=== PATIENT | female | born 1940 | race Caucasian/White ===

== ENCOUNTER → 2017-05-01 | Outpatient (CLI) | payer MEDICARE ==
[2017-05-01 13:46] LABS: Basophils # (A) 0.1 k/uL (0-0.2); Basophils % (A) 1 %; CH 30.1; CHCM 33.1; Eosinophils # (A) 0.2 k/uL (0-0.7); Eosinophils % (A) 3 %; HCT 42.6 % (34.0-46.0); HDW 2.43; HGB 13.7 gm/dL (11.4-16.0); Luc # (Auto) 0.15; Luc % (Auto) 2; Lymphocytes # (A) 1.5 k/uL (1.0-4.8); Lymphocytes % (A) 21 %; MCH 29.4 pg (25.0-35.0); MCHC 32.2 g/dL (31.0-37.0); MCV 91.5 fL (80.0-100.0); Mean Platelet Volume 6.7; Monocytes # (A) 0.3 k/uL (0-1.0); Monocytes % (A) 4 %; Neutrophils # (A) 4.8 k/uL (1.3-7.7); Neutrophils % (A) 69 %; RBC 4.66 m/uL (3.80-5.40); WBC 6.9 k/uL (3.8-10.6); WBC (Perox) 7.24
== END | disposition home or self-care (01) ==
LOC: LABPAT 12:51
PROVIDERS: ATTEND Orthopaedic Surgery
DX: Z01.812 Encounter for preprocedural laboratory examination (principal)
CPT/HCPCS: 85025

== ENCOUNTER → 2017-05-01 | Outpatient (CLI) | payer MEDICARE ==
[2017-05-01 14:23] LABS: ALT 27 U/L (9-52); AST 30 U/L (14-36); Alkaline Phosphatase 123 U/L (38-126); Anion Gap 10 mmol/L; Blood Urea Nitrogen 27 mg/dL (7-17); Calcium 9.5 mg/dL (8.4-10.2); Carbon Dioxide 29 mmol/L (22-30); Chloride 102 mmol/L (98-107); Glucose 81 mg/dL (74-99); Non-African American GFR(MDRD) >60 (>60 ml/min/1.73 sqM); Potassium 3.8 mmol/L (3.5-5.1); Sodium 141 mmol/L (137-145); Total Bilirubin 0.7 mg/dL (0.2-1.3); Total Protein 6.9 g/dL (6.3-8.2)
== END | disposition home or self-care (01) ==
LOC: LABWHC1 12:53
PROVIDERS: ATTEND Internal Medicine Endocrinology, Diabetes & Metabolism
DX: E83.52 Hypercalcemia (principal); R94.6 Abnormal results of thyroid function studies
CPT/HCPCS: 36415; 80053; 83970; 84439; 84443; 84480

== ENCOUNTER 2017-05-25 09:04 | Day surgery (SDC) | payer MEDICARE ==
[2017-05-18 13:59] VITALS: BMI 27.4
--- NOTE | 2017-05-24 09:30 | HP ---
CHIEF COMPLAINT: Left hand pain and numbness. HISTORY OF PRESENT ILLNESS: The patient is a 76-year-old right-hand dominant retired female who presents with progressive left hand pain and numbness that has worsened over the past 4 years. She notes tingling and weakness. She has been wearing a brace at night. She has tried a previous injection along with medications with only partial temporary relief. PAST MEDICAL HISTORY: Significant for arthritis, hyperlipidemia, neuropathy and reflux. PAST SURGICAL HISTORY: Negative. CURRENT MEDICATIONS: 1. Aspirin. 2. Lipitor. 3. Lodine. 4. Neurontin. 5. [place]. 6. Prilosec. She denies drug allergies. FAMILY HISTORY: Noncontributory. SOCIAL HISTORY: Negative for current tobacco or alcohol use. Sixteen-point review of systems, otherwise reviewed and is noncontributory. On examination, the patient is approximately 5 feet 4 inch, 170 pounds of mesomorphic habitus. HEENT exam is nonfocal. Neck is supple. On examination of her left wrist, she has a positive Tinel's over the carpal canal. She has moderate thenar wasting. APB strength is 4+/5. Light touch is diminished in the left thumb, index, middle and ring finger. Capillary refills less than 2 seconds. EMG report from February of 2014 shows a left median motor latency at the carpal canal 4.42 and sensory latency 5.12. IMPRESSION: Left carpal tunnel syndrome. RECOMMENDATIONS: I talked to the patient at length regarding her treatment options. At this point, she opts to proceed with surgery. We will plan to proceed with left carpal tunnel release. We will perform that as an outpatient procedure utilizing local anesthetic and IV sedation. Risks and benefits were discussed at length in layman's terms. ALEXIS
[~2017-05-25 09:04] MED LIST: DEXAMETHASONE SOD PHOSPHATE 10 MG/ML 1 ML VIAL IV ONE; HYDROmorphone 1 MG/ML 1 ML SYRINGE IVP PRN; LACTATED RINGERS 1,000 ML IV SCH; LIDOCAINE 1% 20 ML VIAL (10MG/ML) FOR IV START INTRADERMA PRN; MIDAZOLAM 2 MG/2 ML VIAL IV PRN; ONDANSETRON 4 MG/2 ML VIAL IVP ONE; SCOPOLAMINE 1.5MG/72HR PATCH TRANSDERM ONE; ceFAZolin 1,000 MG in DEXTROSE/WATER 1 50ML.BAG IV ONE
[2017-05-25 09:27] VITALS: TEMP 98
[2017-05-25] MEDS ORDERED: LIDOCAINE 1% 20 ML VIAL (10MG/ML) FOR IV START INTRADERMA ONE (09:50)
[2017-05-25] MEDS ORDERED: LIDOCAINE 1% INJ 10MG/ML (20 ML MDV) ONE (10:04)
[2017-05-25] MEDS ORDERED: MIDAZOLAM 2 MG/2 ML VIAL ONE (10:04)
[2017-05-25] MEDS ORDERED: PROPOFOL 10 MG/ML 20 ML VIAL IV ONE (10:04)
[2017-05-25] MEDS ORDERED: fentaNYL (PF) 50 MCG/ML 2 ML AMP ONE (10:04)
[2017-05-25] MEDS ORDERED: BUPIVACAINE (PF) 0.25% 30 ML VIAL SQ ONE (10:18)
--- NOTE | 2017-05-25 10:34 | P.OP ---
Date of Procedure: 05/25/17 Preoperative Diagnosis: Left carpal tunnel syndrome Postoperative Diagnosis: Same Procedure(s) Performed: Left carpal tunnel release Implants: Anesthesia: MAC, local Surgeon: Graham Hubbard Estimated Blood Loss (ml): 1 Pathology: none sent Condition: stable Disposition: PACU Indications for Procedure: The patient is a 76-year-old female presents with progressive left hand pain and numbness secondary to carpal tunnel syndrome despite conservative measures. A discussion of the risks and benefits of operative intervention versus continued conservative measures was made with the patient. She opted to proceed with surgery. Operative risks to include infection, neurovascular injury, development of blood clots, possible incomplete resolution of symptoms possible recurrence of symptoms and need for subsequent procedures was discussed. Informed consent was obtained. Operative Findings: As below Description of Procedure: The patient was brought to the operating room, and after induction of IV sedation the left upper extremity was prepped and draped in normal fashion. The proposed incision site was outlined with a skin marker in line with the radial aspect the fourth ray extending from the volar wrist crease distally 2-1/ 2 cm. 10 mL of quarter percent plain Marcaine was injected in the proposed incision site. The tourniquet was inflated to 250 mmHg. The skin was then incised sharply. Cutaneous tissues were divided sharply. The superficial palmar fascia was identified and split in line with the skin incision. The transverse carpal ligament was identified and transected under direct visualization distally to level the palmar fat pad. Proximally was taken level of the volar wrist crease. A plane above and below the transverse carpal ligament was then bluntly dissected with tenotomies. The confluence of the distal informed fashion the transverse carpal ligament was then transected under direct visualization with the tenotomy tines pointed in the ulnar direction. I felt there was adequate proximal release. Neural lysis was not performed. The wound was irrigated normal saline. The skin was reapproximated with simple 4-0 nylon sutures. A sterile dressing was applied. The tourniquet was deflated with less than 15 minutes total tourniquet time. The patient was awoken from sedation and transferred to the recovery room in good condition. Blood loss was estimated at 1 mL. No complications were incurred. Sponge and needle counts were correct at the end the case.
[2017-05-25 10:51] VITALS: RESP 16
[2017-05-25 11:09] VITALS: BP 130/78; PULSE 67
== END 2017-05-25 11:34 | disposition home or self-care (01) ==
LOC: OR 09:04
PROVIDERS: ATTEND Orthopaedic Surgery
DX: G56.02 Carpal tunnel syndrome, left upper limb (principal); M19.90 Unspecified osteoarthritis, unspecified site; E78.5 Hyperlipidemia, unspecified; G62.9 Polyneuropathy, unspecified; K21.9 Gastro-esophageal reflux disease without esophagitis; Z79.82 Long term (current) use of aspirin; Z79.1 Long term (current) use of non-steroidal anti-inflammatories (NSAID); Z79.891 Long term (current) use of opiate analgesic; Z79.899 Other long term (current) drug therapy
CPT/HCPCS: 64721; J2250; J1100; J2405; J2001; J3010; J0690; J2704

== ENCOUNTER → 2017-06-01 | Outpatient (CLI) | payer MEDICARE | LOC: LABWHC1 14:57 | PROVIDERS: ATTEND Internal Medicine Endocrinology, Diabetes & Metabolism | DX: R94.6 Abnormal results of thyroid function studies (principal) | CPT/HCPCS: 36415; 84439; 84443; 84481 ==

== ENCOUNTER → 2017-06-25 | Outpatient (CLI) | payer MEDICARE ==
--- NOTE | 2017-06-26 11:41 | NM ---
EXAMINATION TYPE: NM thyroid image w uptake DATE OF EXAM: 06/26/2017 COMPARISON: NONE HISTORY: TECHNIQUE: After the intravenous administration of 10.5 mCi Tc 99m Sodium Pertechnetate, thyroid imag ing is performed 10 minutes post injection. Thyroid iodine uptake is calculated after the oral admini stration of 20 uCi I-131 capsule. FINDINGS: There is normal distribution of activity throughout the gland. The 4 hour iodine uptake is calculated at 5.4% (normal range 8-14%). The 24-hour iodine uptake is calculated at 14.6% (normal ra nge 15-35%). IMPRESSION: 1. Findings are suggestive of borderline hypothyroidism.
== END ==
LOC: RADNMMAIN 10:37
PROVIDERS: ATTEND Internal Medicine Endocrinology, Diabetes & Metabolism
DX: E05.90 Thyrotoxicosis, unspecified without thyrotoxic crisis or storm (principal)
CPT/HCPCS: 78014; A9528; A9512

== ENCOUNTER → 2017-07-13 | Outpatient (CLI) | payer MEDICARE | END | disposition home or self-care (01) | LOC: LABWHC1 08:04 | PROVIDERS: ATTEND Internal Medicine Endocrinology, Diabetes & Metabolism | DX: E05.90 Thyrotoxicosis, unspecified without thyrotoxic crisis or storm (principal); R53.83 Other fatigue | CPT/HCPCS: 36415; 82024; 82533; 82607; 84146 ==

== ENCOUNTER → 2017-08-06 | Outpatient (CLI) | payer MEDICARE ==
--- NOTE | 2017-08-06 16:16 | BD ---
EXAMINATION TYPE: MG DEXA axial skeleton. DATE OF EXAM: 08/06/2017 COMPARISON: 2014 CLINICAL HISTORY: 76-year-old female osteoporosis Height: 5'3 Weight: 159 FRAX RISK QUESTIONS: Alcohol (3 or more units per day): no Family History (Parent hip fracture): no Glucocorticoids (More than 3mos): no (Ex: prednisone, prednisolone, methylprednisolone, dexamethasone, and hydrocortisone). History of Fracture in Adulthood: yes Secondary Osteoporosis: 1. Type 1 Diabetes: no 2. Hyperthyroidism: no 3. Menopause before 45: yes 4. Malnutrition: no 5. Chronic liver disease: no Rheumatoid Arthritis: no Current Tobacco Use: no RISK FACTORS HISTORY OF: Surgery to Spine/ When: 2014 Family History of Osteoporosis: Postmenopausal woman: Lost more than 2 inches in height since high school: MEDICATIONS: Additional Medications: blood pressure, cholesterol, pain Additional History: EXAM MEASUREMENTS: Bone mineral densitometry was performed using the fotobabble System. Bone mineral density about the R hip (g/cm2): 0.895 Bone mineral density about the L hip (g/cm2): 0.889 T Score values are as follows: -----R Neck: -1.0 -----L Neck: -1.1 -----R Total: -1.1 -----L Total: -1.1 Bone mineral density has: Decreased -1.1% since study of: 07/27/2015 IMPRESSION: Osteopenia (T Score between -2.5 and -1 as noted by T score values: Zay Hips). There is slightly increased risk of fracture and the patient may be considered for treatment. Re-Screen 2-5 years. NOTE: T-SCORE=SD OF THE YOUNG ADULT MEAN.
== END | disposition home or self-care (01) ==
LOC: RADBDWWP 10:12
PROVIDERS: ATTEND Internal Medicine Rheumatology
DX: M85.80 Other specified disorders of bone density and structure, unspecified site (principal)
CPT/HCPCS: 77080

== ENCOUNTER → 2017-08-06 | Outpatient (CLI) | payer MEDICARE ==
--- NOTE | 2017-08-07 11:52 | MM ---
Reason for exam: screening (asymptomatic). Last mammogram was performed 1 year ago. History: Patient is postmenopausal. Family history of breast cancer in mother at age 65 and breast cancer in maternal cousin at age 39. Reductions of both breasts, November 29, 2010. Benign excisional biopsy of the left breast. Took estrogen for 27 years beginning at age 38. Physical Findings: A clinical breast exam by your physician is recommended on an annual basis and results should be correlated with mammographic findings. MG Screening Mammo w CAD Bilateral CC and MLO view(s) were taken. Prior study comparison: August 03, 2016, bilateral MG screening mammo w CAD. July 27, 2015, bilateral MG screening mammo w CAD. Finding: There is an increased 3 x 7 mm indistinct irregular mass located 5 cm from the nipple in the 5 o'clock lower inner quadrant, middle position of the right breast. New finding since August 03, 2016. ASSESSMENT: Incomplete: need additional imaging evaluation, BI-RAD 0 RECOMMENDATION: Special view mammogram of the right breast. If lesion persists on supplemental views, image directed ultrasound is recommended. [facility] will attempt to contact patient to return for supplemental views and ultrasound if indicated.
== END | disposition home or self-care (01) ==
LOC: RADMAMWWP 10:09
PROVIDERS: ATTEND Family Medicine
DX: Z12.31 Encounter for screening mammogram for malignant neoplasm of breast (principal); M81.0 Age-related osteoporosis without current pathological fracture; M85.88 Other specified disorders of bone density and structure, other site
CPT/HCPCS: 77080; G0202

== ENCOUNTER → 2017-09-10 | Outpatient (CLI) | payer MEDICARE ==
[2017-09-10 13:27] LABS: ALT 33 U/L (9-52); AST 28 U/L (14-36); Alkaline Phosphatase 132 U/L (38-126); Anion Gap 7 mmol/L; Blood Urea Nitrogen 22 mg/dL (7-17); Calcium 9.5 mg/dL (8.4-10.2); Carbon Dioxide 31 mmol/L (22-30); Chloride 102 mmol/L (98-107); Cholesterol 164 mg/dL (<200); Glucose 90 mg/dL (74-99); HDL Cholesterol 73 mg/dL (40-60); Non-African American GFR(MDRD) >60 (>60 ml/min/1.73 sqM); Potassium 3.9 mmol/L (3.5-5.1); Sodium 140 mmol/L (137-145); Total Bilirubin 0.6 mg/dL (0.2-1.3); Total Protein 6.8 g/dL (6.3-8.2)
== END | disposition home or self-care (01) ==
LOC: LABWHC1 12:24
PROVIDERS: ATTEND Internal Medicine Interventional Cardiology
DX: E83.52 Hypercalcemia (principal); E05.90 Thyrotoxicosis, unspecified without thyrotoxic crisis or storm; E78.2 Mixed hyperlipidemia
CPT/HCPCS: 36415; 80053; 80061; 83970; 84439; 84443

== ENCOUNTER → 2018-03-14 | Outpatient (CLI) | payer MEDICARE ==
[2018-03-14 09:05] LABS: Albumin 4.2 g/dL (3.5-5.0); Potassium 3.7 mmol/L (3.5-5.1); Total Bilirubin 0.5 mg/dL (0.2-1.3); Total Protein 6.6 g/dL (6.3-8.2)
[2018-03-14 09:17] LABS: T4, Free (Free Thyroxine) 0.7 ng/dL (0.78-2.19)
== END | disposition home or self-care (01) ==
LOC: LABWHC1 08:19
PROVIDERS: ATTEND Internal Medicine Endocrinology, Diabetes & Metabolism
DX: E05.90 Thyrotoxicosis, unspecified without thyrotoxic crisis or storm (principal); R94.6 Abnormal results of thyroid function studies; E78.2 Mixed hyperlipidemia
CPT/HCPCS: 36415; 80053; 80061; 84439; 84443; 84480

== ENCOUNTER 2018-05-26 21:22 | Observation (INO) | payer MEDICARE ==
[2018-05-26] MEDS ORDERED: SODIUM CHLORIDE 0.9% 1,000 ML IV STA (21:35)
[2018-05-26 21:48] LABS: Glucose,Whole Blood 95 mg/dL (75-99)
[2018-05-26 22:28] LABS: Basophils % (A) 1 %; Eosinophils # (A) 0.2 k/uL (0-0.7); Eosinophils % (A) 3 %; HCT 40.6 % (34.0-46.0); HGB 13.4 gm/dL (11.4-16.0); Lymphocytes # (A) 1.5 k/uL (1.0-4.8); Lymphocytes % (A) 27 %; MCH 27.5 pg (25.0-35.0); MCHC 33.1 g/dL (31.0-37.0); MCV 83.2 fL (80.0-100.0); Mean Platelet Volume 6.6; Monocytes # (A) 0.4 k/uL (0-1.0); Monocytes % (A) 6 %; Neutrophils # (A) 3.4 k/uL (1.3-7.7); Neutrophils % (A) 61 %; Platelet Count 228 k/uL (150-450); RBC 4.88 m/uL (3.80-5.40); RDW 13.7 % (11.5-15.5); WBC 5.6 k/uL (3.8-10.6)
--- NOTE | 2018-05-26 22:34 | ED ---
General Adult HPI - General Chief complaint: Neuro Symptoms/Deficit Stated complaint: Poss Stroke/difficulty speaking Time Seen by Provider: 05/26/18 21:34 Source: patient, RN notes reviewed, old records reviewed Mode of arrival: wheelchair Limitations: language barrier - History of Present Illness Initial comments: This is a 69-year-old female the ER for evaluation of neurological complaint. Patient presented today for evaluation of possible CVA. Patient episode of expressive aphasia. Patient was unable to identify objects is Saying the wrong thing conversation. Patient does have history of high blood pressure remote history of smoking. Family states he noticed patient doing and acting odd lately, repeating things, not quite fully understanding issues. Patient's aphasia neurological insult at this time is negative, has no complaints - Related Data Home Medications Medication Instructions Recorded Confirmed Aspirin 81 mg PO DAILY 06/18/15 10/26/17 Omeprazole 20 mg PO QAM 06/18/15 10/26/17 Trospium Chloride [Sanctura] 20 mg PO BID 06/18/15 10/26/17 Etodolac [Lodine] 400 mg PO BID 08/02/15 10/26/17 Atorvastatin [Lipitor] 20 mg PO HS 05/18/17 10/26/17 DULoxetine HCL [Cymbalta] 30 mg PO BID 10/26/17 10/26/17 Valsartan/Hydrochlorothiazide 1 tab PO DAILY 10/26/17 10/26/17 [Valsartan-Hctz 80-12.5 mg Tab] Previous Rx's Medication Instructions Recorded Baclofen [Lioresal] 5 mg PO QID #20 tab 10/30/17 Calcium Carb-Vit D 500Mg-200Un 1 each PO DAILY tab 10/30/17 [Oscal 500+D] Cholecalciferol [Vitamin D3] 2,000 unit PO DAILY tab 10/30/17 HYDROcodone/APAP 5-325MG [[place] 1 each PO Q6HR #30 tab 10/30/17 5-325] Niacin Tr [Niacin TR] 250 mg PO DAILY capsule.er 10/30/17 Allergies Allergy/AdvReac Type Severity Reaction Status Date / Time nickel Allergy Rash/Hives Verified 05/26/18 21:33 adhesive AdvReac skin Verified 05/26/18 21:33 irritation Review of Systems ROS Statement: Those systems with pertinent positive or pertinent negative responses have been documented in the HPI. ROS Other: All systems not noted in ROS Statement are negative. Past Medical History Past Medical History: GERD/Reflux, Hyperlipidemia, Hypertension, Musculoskeletal Disorder, Osteoarthritis (OA) Additional Past Medical History / Comment(s): HEART MURMUR,HIATAL HERNIA-large, c-diff 2012. History of Any Multi-Drug Resistant Organisms: None Reported, C-DIFF Date of last positivie culture/infection: 2012 MDRO Source:: CDIFF Past Surgical History: Appendectomy, Back Surgery, Bladder Surgery, Breast Surgery, Cholecystectomy, Hysterectomy, Joint Replacement, Orthopedic Surgery Additional Past Surgical History / Comment(s): spinal FUSION T1-T12,RK NIK EYES ,LT KNEE REPLACEMENT X2,LT KNEE SPACER INSERTED, RT KNEE REPLACEMENT, BLADDER SUSPENSION,BREAST REDUCTION,RT SHOULDER ARTHROSCOPY, rt eye surgery x 2-2016, nik cataracts Past Anesthesia/Blood Transfusion Reactions: No Reported Reaction Additional Past Anesthesia/Blood Transfusion Reaction / Comment(s): . Past Psychological History: No Psychological Hx Reported Smoking Status: Former smoker Past Alcohol Use History: None Reported Past Drug Use History: None Reported - Past Family History Mother Family Medical History: Cancer Father Family Medical History: Cancer General Exam - General Exam Comments Initial Comments: NIH of 0 Limitations: language barrier General appearance: alert, in no apparent distress Head exam: Present: atraumatic, normocephalic, normal inspection Eye exam: Present: normal appearance, PERRL, EOMI. Absent: scleral icterus, conjunctival injection, periorbital swelling ENT exam: Present: normal exam, mucous membranes moist Neck exam: Present: normal inspection. Absent: tenderness, meningismus, lymphadenopathy Respiratory exam: Present: normal lung sounds bilaterally. Absent: respiratory distress, wheezes, rales, rhonchi, stridor Cardiovascular Exam: Present: regular rate, normal rhythm, normal heart sounds. Absent: systolic murmur, diastolic murmur, rubs, gallop, clicks GI/Abdominal exam: Present: soft, normal bowel sounds. Absent: distended, tenderness, guarding, rebound, rigid Extremities exam: Present: normal inspection, full ROM, normal capillary refill. Absent: tenderness, pedal edema, joint swelling, calf tenderness Back exam: Present: normal inspection Neurological exam: Present: alert, oriented X3, CN II-XII intact Psychiatric exam: Present: normal affect, normal mood Skin exam: Present: warm, dry, intact, normal color. Absent: rash Course Vital Signs 05/26/18 05/26/18 05/26/18 21:28 22:17 23:11 Temperature 98.0 F Pulse Rate 96 87 87 Respiratory 18 18 18 Rate Blood Pressure 155/83 154/80 164/82 O2 Sat by Pulse 96 100 100 Oximetry - Reevaluation(s) Reevaluation #1: 05/26/18 22:33 Patient remains without neurological deficit EKG Findings - EKG Comments: EKG Findings:: EKG shows sinus rhythm rate of 94, NJ 136, QTc 445 Medical Decision Making - Medical Decision Making 77 female the ER positive CVA symptoms, no recurrent symptoms. Patient be admitted for neurological evaluation - Lab Data Result diagrams: 05/26/18 22:10 05/26/18 22:10 Lab Results 05/26/18 05/26/18 05/26/18 Range/Units 21:45 22:10 22:10 WBC 5.6 (3.8-10.6) k/uL RBC 4.88 (3.80-5.40) m/uL Hgb 13.4 (11.4-16.0) gm/dL Hct 40.6 (34.0-46.0) % MCV 83.2 (80.0-100.0) fL MCH 27.5 (25.0-35.0) pg MCHC 33.1 (31.0-37.0) g/dL RDW 13.7 (11.5-15.5) % Plt Count 228 (150-450) k/uL Neutrophils % 61 % Lymphocytes % 27 % Monocytes % 6 % Eosinophils % 3 % Basophils % 1 % Neutrophils # 3.4 (1.3-7.7) k/uL Lymphocytes # 1.5 (1.0-4.8) k/uL Monocytes # 0.4 (0-1.0) k/uL Eosinophils # 0.2 (0-0.7) k/uL Basophils # 0.0 (0-0.2) k/uL PT (9.0-12.0) sec INR (<1.2) APTT (22.0-30.0) sec Sodium (137-145) mmol/L Potassium (3.5-5.1) mmol/L Chloride (98-107) mmol/L Carbon Dioxide (22-30) mmol/L Anion Gap mmol/L BUN (7-17) mg/dL Creatinine (0.52-1.04) mg/dL Est GFR (CKD-EPI)AfAm (>60 ml/min/1.73 sqM) Est GFR (CKD-EPI)NonAf (>60 ml/min/1.73 sqM) Glucose (74-99) mg/dL POC Glucose (mg/dL) 95 (75-99) mg/dL POC Glu Pcu Rn ID Eleazar Griffith Calcium (8.4-10.2) mg/dL Total Bilirubin (0.2-1.3) mg/dL AST (14-36) U/L ALT (9-52) U/L Alkaline Phosphatase (38-126) U/L Total Creatine Kinase 92 (30-135) U/L CK-MB (CK-2) 0.8 (0.0-2.4) ng/mL CK-MB (CK-2) Rel Index 0.9 Troponin I <0.012 (0.000-0.034) ng/mL Total Protein (6.3-8.2) g/dL Albumin (3.5-5.0) g/dL 05/26/18 05/26/18 Range/Units 22:10 22:10 WBC (3.8-10.6) k/uL RBC (3.80-5.40) m/uL Hgb (11.4-16.0) gm/dL Hct (34.0-46.0) % MCV (80.0-100.0) fL MCH (25.0-35.0) pg MCHC (31.0-37.0) g/dL RDW (11.5-15.5) % Plt Count (150-450) k/uL Neutrophils % % Lymphocytes % % Monocytes % % Eosinophils % % Basophils % % Neutrophils # (1.3-7.7) k/uL Lymphocytes # (1.0-4.8) k/uL Monocytes # (0-1.0) k/uL Eosinophils # (0-0.7) k/uL Basophils # (0-0.2) k/uL PT 10.5 (9.0-12.0) sec INR 1.1 (<1.2) APTT 23.5 (22.0-30.0) sec Sodium 139 (137-145) mmol/L Potassium 3.6 (3.5-5.1) mmol/L Chloride 101 (98-107) mmol/L Carbon Dioxide 29 (22-30) mmol/L Anion Gap 9 mmol/L BUN 24 H (7-17) mg/dL Creatinine 0.80 (0.52-1.04) mg/dL Est GFR (CKD-EPI)AfAm 82 (>60 ml/min/1.73 sqM) Est GFR (CKD-EPI)NonAf 71 (>60 ml/min/1.73 sqM) Glucose 88 (74-99) mg/dL POC Glucose (mg/dL) (75-99) mg/dL POC Glu Pcu Rn ID Calcium 9.4 (8.4-10.2) mg/dL Total Bilirubin 0.3 (0.2-1.3) mg/dL AST 29 (14-36) U/L ALT 30 (9-52) U/L Alkaline Phosphatase 126 (38-126) U/L Total Creatine Kinase (30-135) U/L CK-MB (CK-2) (0.0-2.4) ng/mL CK-MB (CK-2) Rel Index Troponin I (0.000-0.034) ng/mL Total Protein 6.3 (6.3-8.2) g/dL Albumin 3.9 (3.5-5.0) g/dL - Radiology Data Radiology results: report reviewed (Chest x-ray CTA brain, CT brain negative for acute disease), image reviewed Disposition Clinical Impression: Transient cerebral ischemia Disposition: ADMITTED IP TO THIS HOSP Condition: Undetermined Is patient prescribed a controlled substance at d/c from ED?: No Referrals: Luis Daniel Varela DO [Primary Care Provider] - 1-2 days
[2018-05-26 22:35] LABS: Albumin 3.9 g/dL (3.5-5.0); Calcium 9.4 mg/dL (8.4-10.2); Potassium 3.6 mmol/L (3.5-5.1); Total Bilirubin 0.3 mg/dL (0.2-1.3); Total Protein 6.3 g/dL (6.3-8.2)
[2018-05-26 22:38] LABS: INR 1.1 (<1.2); Partial Thromboplastin Time 23.5 sec (22.0-30.0); Prothrombin Time 10.5 sec (9.0-12.0)
[2018-05-26 22:46] LABS: Creatine Kinase 92 U/L (30-135)
[2018-05-26 22:58] LABS: Creatine Kinase MB 0.8 ng/mL (0.0-2.4); Troponin I <0.012 ng/mL (0.000-0.034)
--- NOTE | 2018-05-26 23:13 | CT ---
EXAMINATION TYPE: CT brain wo con DATE OF EXAM: 05/26/2018 COMPARISON: None HISTORY: Dysphasia. CT DLP: 1008.5 mGycm Automated exposure control for dose reduction was used. FINDINGS: There is some cerebral cortical atrophy. There is no mass effect nor midline shift. There is no sign of intracranial hemorrhage. The calvarium is intact. IMPRESSION: NEGATIVE CT SCAN OF THE BRAIN. CEREBRAL ATROPHY.
[2018-05-26] MEDS ORDERED: ASPIRIN 325 MG TAB PO STA (23:23)
--- NOTE | 2018-05-27 00:15 | CT ---
EXAMINATION TYPE: CT angio head neck DATE OF EXAM: 05/26/2018 HISTORY: Dysphasia. COMPARISON: CT DLP: 270.9 mGycm. Automated Exposure Control for Dose Reduction was Utilized. TECHNIQUE: CTA scan of the neck is performed with IV Contrast, patient injected with 65 mL of Isovue 370, axial images are obtained, coronal and sagittal reformatted images are reviewed. Three-D recons tructed images are created on an independent workstation and reviewed. FINDINGS: There is atheromatous change in the aortic arch with some plaque formation. There is normal branching pattern of the great vessels on the aortic arch. I see no significant stenosis of the great vessels. There is bilateral arterial flow in the vertebral arteries which appear relatively small. There is arterial flow in the common internal and external carotid arteries bilaterally. There is anshu e plaque formation on the right side with lumen narrowing of 50% of the right proximal internal carot id artery. There is no stenosis on the left side. There is no evidence of carotid or vertebral artery dissection. There is arterial flow in the vertebrobasilar artery system. There is arterial flow in the anterior m iddle and posterior cerebral arteries. There is minimal vascular calcification of the intracranial in ternal carotid arteries. I see no evidence of aneurysm or neovascularity. There is no mass effect. Th ere is normal contrast opacification of the venous sinuses. IMPRESSION: There is approximate 50% stenosis of the origin of the right internal carotid artery due to plaque fo rmation and calcification. No significant stenosis on the left side. Diminutive vertebral arteries. No evidence of carotid or vertebral artery aneurysm or dissection. Ath eromatous change at the aortic arch. No significant angiographic abnormality demonstrated in the intr acranial arterial circulation. Mild atheromatous change in the intracranial internal carotid arteries .
--- NOTE | 2018-05-27 00:28 | XR ---
EXAMINATION TYPE: XR chest 2V DATE OF EXAM: 05/26/2018 COMPARISON: 10/30/2017 HISTORY: Altered mental status TECHNIQUE: Frontal and lateral views of the chest are obtained. FINDINGS: There is large hiatal hernia with fluid level. Lungs are clear of consolidation. There is no heart failure. Thoracic aorta is atheromatous. There are chest leads. There is posterior fusion nelson rgery in the lower thoracic and lumbar spine. There are chest leads. IMPRESSION: No active cardiopulmonary disease. Large hiatal hernia. No significant change.
[2018-05-27] MEDS: SODIUM CHLORIDE 0.9% 1,000 ML IV SCH ×3 (00:31→20:55)
[2018-05-27 02:11] VITALS: BMI 27.4
[2018-05-27 06:38] LABS: Anion Gap 8 mmol/L; Blood Urea Nitrogen 18 mg/dL (7-17); Carbon Dioxide 26 mmol/L (22-30); Chloride 109 mmol/L (98-107); Cholesterol 134 mg/dL (<200); Glucose 89 mg/dL (74-99); HDL Cholesterol 58 mg/dL (40-60); LDL Cholesterol,Calculated 60 mg/dL (0-99); Potassium 3.3 mmol/L (3.5-5.1); Sodium 143 mmol/L (137-145); Triglycerides 79 mg/dL (<150)
[2018-05-27 06:54] LABS: Basophils % (A) 1 %; Eosinophils # (A) 0.2 k/uL (0-0.7); Eosinophils % (A) 4 %; HCT 39.1 % (34.0-46.0); HGB 13.2 gm/dL (11.4-16.0); Lymphocytes # (A) 1.6 k/uL (1.0-4.8); Lymphocytes % (A) 31 %; MCH 28.5 pg (25.0-35.0); MCHC 33.8 g/dL (31.0-37.0); MCV 84.1 fL (80.0-100.0); Mean Platelet Volume 6.3; Monocytes # (A) 0.3 k/uL (0-1.0); Monocytes % (A) 6 %; Neutrophils # (A) 2.8 k/uL (1.3-7.7); Neutrophils % (A) 55 %; Platelet Count 224 k/uL (150-450); RBC 4.65 m/uL (3.80-5.40); RDW 13.8 % (11.5-15.5); WBC 5.2 k/uL (3.8-10.6)
[2018-05-27] MEDS ORDERED: ASPIRIN 325 MG TAB PO SCH (09:00)
[2018-05-27] MEDS ORDERED: HYDROcodone/APAP 7.5-325MG 1 EACH TAB PO PRN (13:34)
[2018-05-27] MEDS ORDERED: NIACIN TR 250 MG CAPSULE.ER PO SCH (13:45)
--- NOTE | 2018-05-27 17:17 | ECHOF ---
Referral Reason:TIA MEASUREMENTS -------- HEIGHT: 162.6 cm WEIGHT: 75.8 kg BP: 145/70 IVSd: 1.3 cm (0.6 - 1.1) LVIDd: 3.1 cm (3.9 - 5.3) LVPWd: 1.3 cm (0.6 - 1.1) IVSs: 1.7 cm LVIDs: 2.2 cm LVPWs: 1.3 cm LA Diam: 2.3 cm (2.7 - 3.8) RVIDd: 2.1 cm (< 3.3) LAESV Index (A-L): 24.46 ml/m Ao Diam: 3.1 cm (2.0 - 3.7) AV Cusp: 1.9 cm (1.5 - 2.6) EPSS: 0.3 cm MV E Jair: 0.87 m/s MV DecT: 254 ms MV A Jair: 0.92 m/s MV E/A Ratio: 0.95 AV maxP.32 mmHg AV meanP.84 mmHg RAP: 5.00 mmHg RVSP: 32.48 mmHg MV EF SLOPE: 28.21 mm/s (70 - 150) MV EXCURSION: 13.54 mm (> 18.000) FINDINGS -------- Sinus rhythm. This was a technically adequate study. The left ventricular size is normal. There is mild concentric left ventricular hypertrophy. Overa ll left ventricular systolic function is normal with, an EF between 55 - 60 %. The right ventricle is normal in size. Normal LA size by volume 22+/-6 ml/m2. The right atrium is normal in size. The aortic valve was not well visualized. There is mild aortic valve sclerosis. Peak/mean gradien t across the Aortic Valve is 14.32mmHg / 7.84mmHg. The mitral valve leaflets are mildly thickened. Mild mitral annular calcification present. Mild m itral regurgitation is present. Mild tricuspid regurgitation present. Right ventricular systolic pressure is normal at < 35 mmHg. Trace/mild (physiologic) pulmonic regurgitation. The aortic root size is normal. Normal inferior vena cava with normal inspiratory collapse consistent with estimated right atrial pre ssure of 5 mmHg. There is no pericardial effusion. CONCLUSIONS -------- 1. Sinus rhythm. 2. This was a technically adequate study. 3. The left ventricular size is normal. 4. There is mild concentric left ventricular hypertrophy. 5. Overall left ventricular systolic function is normal with, an EF between 55 - 60 %. 6. The right ventricle is normal in size. 7. Normal LA size by volume 22+/-6 ml/m2. 8. The right atrium is normal in size. 9. The aortic valve was not well visualized. 10. There is mild aortic valve sclerosis. 11. Peak/mean gradient across the Aortic Valve is 14.32mmHg / 7.84mmHg. 12. The mitral valve leaflets are mildly thickened. 13. Mild mitral annular calcification present. 14. Mild mitral regurgitation is present. 15. Mild tricuspid regurgitation present. 16. Right ventricular systolic pressure is normal at < 35 mmHg. 17. Trace/mild (physiologic) pulmonic regurgitation. 18. The aortic root size is normal. 19. Normal inferior vena cava with normal inspiratory collapse consistent with estimated right atrial pressure of 5 mmHg. 20. There is no pericardial effusion. GUIDE CHANGER: Sneha Knutson RDCS
[2018-05-27] MEDS: BACLOFEN 10 MG TAB PO SCH ×3 (18:26→22:32)
[2018-05-27] MEDS: DULoxetine HCL 30 MG CAPSULE.DR PO SCH ×2 (18:27→21:29)
[2018-05-27] MEDS: ETODOLAC 400 MG TAB PO SCH ×2 (18:27→21:28)
[2018-05-27] MEDS: PANTOPRAZOLE 40 MG TABLET PO SCH (18:27)
[2018-05-27] MEDS: VALSARTAN 80 MG TAB PO SCH (18:28)
[2018-05-27] MEDS: TROSPIUM CHLORIDE 20 MG TABLET PO SCH ×2 (18:28→21:28)
--- NOTE | 2018-05-27 19:58 | P.CNNES ---
History of Present Illness Consult date: 05/27/18 History of Present Illness: The patient is a 77-year-old right-handed white female who was in her usual health until yesterday evening while speaking to her granddaughter she developed some word finding difficulty. She has had word finding difficulty on occasion felt to be due to her memory but yesterday was a bit different it came on rather suddenly and it lasted for about 10 minutes. He knew what she wanted to say but the words did not come out correctly. This is different from the past where she would just have her problem finding the right word on occasion. There was no focal weakness or numbness at the time no double vision or change in vision. She has been on baby aspirin. She has a history of heart murmur and hypertension and arthritis. She had a CT of the brain in the emergency room which was negative. There was some atrophy. She was admitted to the hospital for possible TIA. She reports that she has a known stenosis in the right carotid of about 50%. This was again demonstrated on a CT angiogram done in the emergency room yesterday. States her blood pressure was elevated when she came in to the ER much higher than usual. Review of Systems Constitutional: Denies chills, Denies fever Eyes: denies blurred vision, denies pain Ears, nose, mouth and throat: Denies headache, Denies sore throat Cardiovascular: Denies chest pain, Denies shortness of breath Respiratory: Denies cough Musculoskeletal: Denies myalgias Neurological: Denies numbness, Denies weakness Psychiatric: Denies anxiety, Denies depression Past Medical History Past Medical History: GERD/Reflux, Hyperlipidemia, Hypertension, Musculoskeletal Disorder, Osteoarthritis (OA) Additional Past Medical History / Comment(s): HEART MURMUR,HIATAL HERNIA-large, c-diff 2012. History of Any Multi-Drug Resistant Organisms: C-DIFF Date of last positivie culture/infection: 2012 MDRO Source:: CDIFF Past Surgical History: Appendectomy, Back Surgery, Bladder Surgery, Breast Surgery, Cholecystectomy, Hysterectomy, Joint Replacement, Orthopedic Surgery Additional Past Surgical History / Comment(s): spinal FUSION T1-T12,RK NIK EYES (torn retina; right eyehas blurry peripheral vision) ,LT KNEE REPLACEMENT X2,LT KNEE SPACER INSERTED, RT KNEE REPLACEMENT, BLADDER SUSPENSION,BREAST REDUCTION, RT SHOULDER ARTHROSCOPY, rt eye surgery x 2-2016, nik cataracts Past Anesthesia/Blood Transfusion Reactions: No Reported Reaction Additional Past Anesthesia/Blood Transfusion Reaction / Comment(s): . Past Psychological History: No Psychological Hx Reported Smoking Status: Former smoker Past Alcohol Use History: None Reported Additional Past Alcohol Use History / Comment(s): SMOKED OCCASionally 30 YRS, QUIT Past Drug Use History: None Reported - Past Family History Mother Family Medical History: Cancer Additional Family Medical History / Comment(s): breast CA Father Family Medical History: Cancer Additional Family Medical History / Comment(s): bone cancer Medications and Allergies Home Medications Medication Instructions Recorded Confirmed Type Aspirin 81 mg PO DAILY 06/18/15 05/27/18 History Omeprazole 20 mg PO QAM 06/18/15 05/27/18 History Trospium Chloride [Sanctura] 20 mg PO BID 06/18/15 05/27/18 History Etodolac [Lodine] 400 mg PO BID 08/02/15 05/27/18 History Atorvastatin [Lipitor] 20 mg PO HS 05/18/17 05/27/18 History DULoxetine HCL [Cymbalta] 30 mg PO BID 10/26/17 05/27/18 History Baclofen [Lioresal] 5 mg PO QID #20 tab 10/30/17 05/27/18 Rx Calcium Carb-Vit D 500Mg-200Un 1 each PO DAILY tab 10/30/17 05/27/18 Rx [Oscal 500+D] Cholecalciferol [Vitamin D3] 2,000 unit PO DAILY tab 10/30/17 05/27/18 Rx Niacin Tr [Niacin TR] 250 mg PO DAILY capsule.er 10/30/17 05/27/18 Rx HYDROcodone/APAP 7.5-325MG [[place] 1 tab PO Q8H PRN 05/27/18 05/27/18 History 7.5-325] Valsartan [Diovan] 80 mg PO DAILY 05/27/18 05/27/18 History Allergies Allergy/AdvReac Type Severity Reaction Status Date / Time nickel Allergy Rash/Hives Verified 05/27/18 08:31 adhesive AdvReac skin Verified 05/27/18 08:31 irritation Physical Examination - Vital Signs Vital Signs: Vital Signs Temp Pulse Pulse Resp BP BP Pulse Ox 07/09/18 16:00 77 16 131/97 95 05/27/18 12:00 70 16 117/82 94 L 05/27/18 11:57 16 05/27/18 08:00 97.3 F L 79 16 153/69 95 05/27/18 06:04 97.1 F L 69 17 145/70 95 05/27/18 04:23 97 F L 76 17 133/63 95 05/27/18 03:54 82 17 05/27/18 03:51 96.8 F L 82 17 175/79 94 L 05/27/18 02:23 97 F L 95 18 160/85 95 05/27/18 01:23 97 F L 93 17 150/100 95 05/27/18 00:49 98.9 F 86 18 163/90 98 05/27/18 00:15 97.0 F L 93 18 150/100 96 05/26/18 23:11 87 18 164/82 100 05/26/18 22:17 87 18 154/80 100 05/26/18 21:28 98.0 F 96 18 155/83 96 Intake and Output 05/27/18 05/27/18 05/27/18 06:59 14:59 22:59 Intake Total 700 480 240 Balance 700 480 240 Intake: Intake, IV Titration 500 Amount Sodium Chloride 0.9% 1, 500 000 ml @ 100 mls/hr IV . Q10H [facility] Rx#:[id number] Oral 200 480 240 Other: Voiding Method Toilet Toilet Toilet # Voids 1 1 2 # Bowel Movements 0 Weight 76.1 kg - Constitutional General appearance: average body habitus, cooperative - EENT EENT: PERRL, hearing intact, vision intact - Respiratory Respiratory: lungs clear - Cardiovascular Cardiovascular: regular rate, normal S1, normal S2 - Neurologic Neurologic exam mental status: She was awake alert and oriented. She answered questions appropriately. There was no a aphasia or dysarthria. Cranial nerve examination: PERRL, EOMI, VFF, ptosis, face symmetric, tongue midline Speech examination: intact Detailed motor examination: grossly full strength in all extremities Detailed sensory examination: intact Results - Laboratory Findings CBC and BMP: 05/27/18 05:59 05/27/18 05:59 Abnormal Lab Findings: Abnormal Labs 05/26/18 05/27/18 22:10 05:59 Potassium 3.3 L Chloride 109 H BUN 24 H 18 H Assessment and Plan (1) Transient cerebral ischemia Current Visit: Yes Status: Acute SNOMED Code(s): 009629230 Plan: The patient is a 77-year-old woman admitted to the hospital with expressive aphasia. Her neurologic examination patient demonstrates a mild right ptosis which is old. Her aspirin dose has been increased to 325 mg a day. She does have a history of right carotid stenosis of 50%. Patient will be having MRI of the brain done. He has had an echocardiogram which was unremarkable.
[2018-05-27] MEDS ORDERED: MAGNESIUM HYDROXIDE 2,400 MG/10 ML CUP PO PRN (20:13)
[2018-05-27] MEDS ORDERED: ALPRAZolam 0.25 MG TAB PO PRN (20:13)
[2018-05-27] MEDS ORDERED: ONDANSETRON 4 MG/2 ML VIAL IVP PRN (20:13)
[2018-05-27] MEDS ORDERED: LACTULOSE 20 GM/30 ML CUP PO PRN (20:13)
[2018-05-27] MEDS ORDERED: ACETAMINOPHEN TAB 325 MG TAB PO PRN (20:13)
[2018-05-27] MEDS ORDERED: MELATONIN 3 MG TABLET PO PRN (20:13)
[2018-05-27] MEDS: ENOXAPARIN 40 MG/0.4 ML SYRINGE SQ SCH (20:57)
--- NOTE | 2018-05-27 20:57 | HP ---
HISTORY AND PHYSICAL DATE OF ADMISSION: 05/26/2018. DATE OF ADMISSION: 05/27/2018. PRESENTING COMPLAINT: Loss of speech. HISTORY OF PRESENTING COMPLAINT: A very pleasant 77-year-old patient of Dr. Varela. Chronic stable medical conditions include GERD, hypertension, hyperlipidemia, osteoarthritis, hiatal hernia. At around 7 o'clock yesterday patient found that she was unable to speak words even though she could think in her mind. Her daughter could not make out her speech. This episode lasted for about 5 to 10 minutes then completely resolved. There was no change in vision. No headache. No change in arms or legs. No incontinence. No change in walking. No change in swallowing. The patient was brought in for the same. Initial CT scan did not show any stroke. The symptoms have not recurred since then. Neurology, Dr. Duke, was consulted. REVIEW OF SYSTEMS: CONSTITUTIONAL: None. HEENT: None. RESPIRATORY: None. CARDIOVASCULAR: None. GASTROINTESTINAL: Heartburn. GENITOURINARY: None. MUSCULOSKELETAL: Pain in different joints. DERMATOLOGIC: None. HEMATOLOGIC: None. PSYCHIATRIC: None. NEUROLOGIC: As above. PAST MEDICAL HISTORY: GERD, hypertension, hyperlipidemia, osteoarthritis, hiatal hernia. PAST SURGICAL HISTORY: Appendectomy, back surgery, bladder surgery, breast surgery, cholecystectomy, hysterectomy, spinal fusion T1-T12, left knee replacement x2, left knee spacer inserted, right knee replacement, bladder suspension, breast reduction, right shoulder arthroscopy, right eye surgery x2, bilateral cataracts. SOCIAL HISTORY: Smoked occasionally for about 30 years, stopped in . No alcohol. . FAMILY HISTORY: Breast cancer. HOME MEDICATIONS: 1. Diovan 80 mg p.o. daily. 2. Sanctura 20 mg p.o. b.i.d. 3. Omeprazole 20 mg p.o. daily. 4. Niacin TR 250 mg daily. 5. [place] 7.5 one tab every 8 hours p.r.n. 6. Lodine 4 mg p.o. b.i.d. 7. Cymbalta 30 mg p.o. b.i.d. 8. Vitamin D3, 2000 units p.o. daily. 9. [place] 5 D 1 tablet p.o. daily. 10.Baclofen 5 mg p.o. q.i.d. 11.Lipitor 20 mg at bedtime. 12.Aspirin 81 mg p.o. daily. ALLERGIES: NICKEL, ADHESIVE. PHYSICAL EXAMINATION: Vital signs on presentation, temperature 98, pulse 96, respirations 18, blood pressure 155/83, pulse ox 96% on room air. GENERAL APPEARANCE: Average built, sitting up, comfortable. EYES: Pupils are normal. Conjunctivae normal. HEENT: External appearance of nose and ears normal. Oral cavity normal. NECK: JVD not raised. Mass not palpable. Respiratory effort normal. LUNGS: Clear. CARDIOVASCULAR: 1st and 2nd heart sounds. No edema. ABDOMEN: Soft, nontender. Liver and spleen not palpable. LYMPHATICS: No lymph palpable in the neck, axillae or groin. PSYCHIATRY: Alert and oriented x3. Mood and affect normal. NEUROLOGIC: Pupils equal. Cranial nerves grossly intact. Power and sensation grossly intact. MUSCULOSKELETAL: Evidence of severe osteoarthritis, especially hands and knees. INVESTIGATIONS: White count 5.6, hemoglobin 13.4, potassium 3.6, BUN 24, creatinine 0.80, troponin negative, LDL 60. EKG normal sinus rhythm. CT angio 50% stenosis at the origin of the right internal carotid artery due to plaque formation and calcification. CT scan of the brain shows some atrophy. Echocardiogram, the ejection fraction is preserved. No thrombus reported. ASSESSMENT: 1. Acute event of expressive dysarthria in a right-handed patient, whose initial CT scan was unremarkable. Patient had no other focal symptoms. There was no recurrence of symptoms. 2. Gastroesophageal reflux disease. 3. Essential hypertension. 4. Primary osteoarthritis. 5. Hiatal hernia. PLAN: The patient is on aspirin. Lipitor has been added. Will discontinue the niacin. Home medications are resumed. Care was discussed with the patient. MRI of the brain with contrast has been added. Neurology, Dr. Javed San was consulted. Neuro checks are in place. Care was discussed with the patient's . Questions were answered. MMODL / IJN: [id number] /
[2018-05-27] MEDS ORDERED: ATORVASTATIN 80 MG TAB PO SCH (21:00)
[2018-05-28 04:44] VITALS: TEMP 97.6
[2018-05-28] MEDS: PANTOPRAZOLE 40 MG TABLET PO SCH (06:47)
[2018-05-28 07:21] LABS: Basophils % (A) 1 %; Eosinophils # (A) 0.2 k/uL (0-0.7); Eosinophils % (A) 4 %; HCT 39.2 % (34.0-46.0); HGB 13.2 gm/dL (11.4-16.0); Lymphocytes # (A) 1.5 k/uL (1.0-4.8); Lymphocytes % (A) 40 %; MCH 28.1 pg (25.0-35.0); MCHC 33.6 g/dL (31.0-37.0); MCV 83.7 fL (80.0-100.0); Mean Platelet Volume 6.2; Monocytes # (A) 0.3 k/uL (0-1.0); Monocytes % (A) 7 %; Neutrophils # (A) 1.7 k/uL (1.3-7.7); Neutrophils % (A) 45 %; Platelet Count 235 k/uL (150-450); RBC 4.69 m/uL (3.80-5.40); WBC 3.8 k/uL (3.8-10.6)
[2018-05-28 07:37] LABS: Anion Gap 9 mmol/L; Blood Urea Nitrogen 12 mg/dL (7-17); Calcium 9.3 mg/dL (8.4-10.2); Carbon Dioxide 28 mmol/L (22-30); Chloride 106 mmol/L (98-107); Glucose 86 mg/dL (74-99); Potassium 3.4 mmol/L (3.5-5.1); Sodium 143 mmol/L (137-145)
[2018-05-28] MEDS: ETODOLAC 400 MG TAB PO SCH (07:42)
[2018-05-28] MEDS: TROSPIUM CHLORIDE 20 MG TABLET PO SCH (07:42)
[2018-05-28] MEDS: BACLOFEN 10 MG TAB PO SCH ×2 (07:42→12:16)
[2018-05-28] MEDS: ENOXAPARIN 40 MG/0.4 ML SYRINGE SQ SCH (07:42)
[2018-05-28] MEDS: VALSARTAN 80 MG TAB PO SCH (07:42)
[2018-05-28] MEDS: DULoxetine HCL 30 MG CAPSULE.DR PO SCH (07:43)
[2018-05-28 07:51] VITALS: RESP 16
[2018-05-28] MEDS ORDERED: ASPIRIN 81 MG PO SCH (09:00)
--- NOTE | 2018-05-28 11:01 | MR ---
EXAMINATION TYPE: MR brain wo/w con DATE OF EXAM: 05/28/2018 COMPARISON: CT brain 05/26/2018 HISTORY: TIA TECHNIQUE: Multiplanar, multisequence images of the brain and brainstem is performed without and with IV contras t, utilizing 7 mL intravenous Gadavist . FINDINGS: Fast brain protocol utilized due to patient condition. Diffusion weighted images demonstrat e no evidence of a recent infarct or other diffusion abnormality. There is no extra-axial fluid raymon ection. There are extensive confluent and scattered hyperintensities in the periventricular and subc ortical white matter on inversion recovery and T2-weighted sequences. The ventricular system and cist ernal spaces are normal in size and appearance. The brain volume is age appropriate, there is cortic al atrophy is noted on CT. Midline structures demonstrate normal morphology. The craniocervical junction appears within normal limits. Post contrast images demonstrate no abnormal enhancement. The dural venous sinuses appear pa tent. The visualized sinuses are clear and the globes are intact. IMPRESSION: Age-related changes of atrophy and probable chronic small vessel ischemia.
[2018-05-28 12:15] VITALS: BP 147/90; PULSE 77
== END 2018-05-28 16:13 | disposition home or self-care (01) ==
LOC: EC 21:22 → 6SEL 23:24
PROVIDERS: ADMIT Hospitalist; ATTEND Hospitalist
DX: R47.1 Dysarthria and anarthria (principal); I65.21 Occlusion and stenosis of right carotid artery; K21.9 Gastro-esophageal reflux disease without esophagitis; I10 Essential (primary) hypertension; K44.9 Diaphragmatic hernia without obstruction or gangrene; R12 Heartburn; M19.042 Primary osteoarthritis, left hand; M19.041 Primary osteoarthritis, right hand; M17.0 Bilateral primary osteoarthritis of knee; Z79.899 Other long term (current) drug therapy; Z79.82 Long term (current) use of aspirin; Z90.49 Acquired absence of other specified parts of digestive tract; Z87.891 Personal history of nicotine dependence; Z96.653 Presence of artificial knee joint, bilateral; Z98.1 Arthrodesis status; Z90.89 Acquired absence of other organs; Z90.710 Acquired absence of both cervix and uterus; Z91.048 Other nonmedicinal substance allergy status; Z80.3 Family history of malignant neoplasm of breast; Z80.8 Family history of malignant neoplasm of other organs or systems
CPT/HCPCS: 99285 ×2; 96360 ×2; 96361 ×3; 96372 ×2; 36415; 93005; 93306; 97161; 97166; 92523; 80061; 80053; 80048 ×2; 82550; 82553; 84484; 85025 ×3; 85610; 85730; 71046; 70496; 70450; 70498; 70553; G0378 ×3; J1650 ×2; A9581; Q9967

== ENCOUNTER 2018-06-10 22:53 | Emergency (ER) | payer MEDICARE ==
[2018-06-10 23:02] VITALS: RESP 18
[2018-06-10] MEDS ORDERED: ENALAPRILAT 1.25 MG/ML 1 ML VIAL IVP STA (23:22)
--- NOTE | 2018-06-10 23:31 | ED ---
General Adult HPI - General Chief complaint: Recheck/Abnormal Lab/Rx Stated complaint: hypertension Time Seen by Provider: 06/10/18 23:03 Source: patient Mode of arrival: ambulatory Limitations: no limitations - History of Present Illness Initial comments: This is a 77-year-old female who presents emergency department for hypertension. The patient states that she was in the hospital recently for a TIA area her blood pressure was elevated at that time and has been elevated since she got home. She states that she is on valsartan daily which she has been compliant with. She states that she recently got changed to losartan however has not been able to get that prescription yet. She has been taking valsartan every day. She states that she saw Dr. Varela a few days ago and had to give her some medication in the office to get her blood pressure down. She states that she has a mild headache however no focal neurologic deficits. No chest pain or shortness of breath. No swelling. Has been urinating normal amount. She states that she came in tonight at the encouragement of her family. - Related Data Home Medications Medication Instructions Recorded Confirmed Omeprazole 20 mg PO QAM 06/18/15 06/10/18 Trospium Chloride [Sanctura] 20 mg PO BID 06/18/15 06/10/18 DULoxetine HCL [Cymbalta] 30 mg PO BID 10/26/17 06/10/18 HYDROcodone/APAP 7.5-325MG [[place] 1 tab PO Q8H PRN 05/27/18 06/10/18 7.5-325] Valsartan [Diovan] 80 mg PO DAILY 05/27/18 06/10/18 Calcium Carb-Vit D 500Mg-200Un 1 tab PO DAILY 06/10/18 06/10/18 [Oscal 500+D] Previous Rx's Medication Instructions Recorded Cholecalciferol [Vitamin D3] 2,000 unit PO DAILY tab 10/30/17 Aspirin 81 mg PO BID #0 05/28/18 Atorvastatin [Lipitor] 80 mg PO HS #30 tab 05/28/18 Allergies Allergy/AdvReac Type Severity Reaction Status Date / Time nickel Allergy Rash/Hives Verified 06/10/18 23:25 adhesive AdvReac skin Verified 06/10/18 23:25 irritation Review of Systems ROS Statement: Those systems with pertinent positive or pertinent negative responses have been documented in the HPI. ROS Other: All systems not noted in ROS Statement are negative. Past Medical History Past Medical History: GERD/Reflux, Hyperlipidemia, Hypertension, Musculoskeletal Disorder, Osteoarthritis (OA) Additional Past Medical History / Comment(s): HEART MURMUR,HIATAL HERNIA-large, c-diff 2012. TIA 2017, History of Any Multi-Drug Resistant Organisms: C-DIFF Date of last positivie culture/infection: 2012 MDRO Source:: CDIFF Past Surgical History: Appendectomy, Back Surgery, Bladder Surgery, Breast Surgery, Cholecystectomy, Hysterectomy, Joint Replacement, Orthopedic Surgery Additional Past Surgical History / Comment(s): spinal FUSION T1-T12,RK NIK EYES (torn retina; right eyehas blurry peripheral vision) ,LT KNEE REPLACEMENT X2,LT KNEE SPACER INSERTED, RT KNEE REPLACEMENT, BLADDER SUSPENSION,BREAST REDUCTION, RT SHOULDER ARTHROSCOPY, rt eye surgery x 2-2016, nik cataracts, Past Anesthesia/Blood Transfusion Reactions: No Reported Reaction Additional Past Anesthesia/Blood Transfusion Reaction / Comment(s): . Past Psychological History: No Psychological Hx Reported Smoking Status: Former smoker Past Alcohol Use History: Rare Past Drug Use History: None Reported - Past Family History Mother Family Medical History: Cancer Additional Family Medical History / Comment(s): breast CA Father Family Medical History: Cancer Additional Family Medical History / Comment(s): bone cancer General Exam - General Exam Comments Initial Comments: Constitutional: Awake alert Appears comfortable Head: Normocephalic atraumatic Eyes: no conjunctival injection No scleral icterus EOMI, pupils 4 mm reactive bilaterally Neck: No JVD Supple Heart: Regular rate rhythm normal S1-S2 no murmurs Lungs: Clear to auscultation bilaterally No wheezing No rales Abdomen: Soft nondistended nontender Extremities: Non edematous DP pulses intact Radial pulses intact Neuro: A&Ox3, 5 out of 5 strength in upper and lower extremities bilaterally, sensation intact in all extremities, no ataxia with finger-nose and heel to enriquez testing No focal neurologic deficits Psych: Appropriate mood and affect Limitations: no limitations Course Vital Signs 06/10/18 22:58 Temperature 98.5 F Pulse Rate 91 Respiratory 18 Rate Blood Pressure 171/93 O2 Sat by Pulse 98 Oximetry EKG Findings - EKG Comments: EKG Findings:: EKG showing normal sinus rhythm with a rate of 78. No abnormal ST segment changes or T-wave inversions. QTC is 408. Other intervals normal. No ectopy. Medical Decision Making - Medical Decision Making This is a 77-year-old female who presents emergency department for hypertension. Otherwise had no focal neurologic symptoms. No chest pain. No shortness of breath. EKG was normal. Blood work is normal. The patient was given Vasotec and blood pressure went from 2:30 systolic down to 185 systolic. The patient again had no symptoms. I told her that I did not want to lower it any faster throughout the night. 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 Instructed her to return if she had high blood pressure associated with neurologic symptoms, chest pain, or shortness of breath. All questions were answered. - Lab Data Result diagrams: 06/10/18 23:35 06/10/18 23:35 Lab Results 06/10/18 06/10/18 Range/Units 23:35 23:35 WBC 5.5 (3.8-10.6) k/uL RBC 4.90 (3.80-5.40) m/uL Hgb 13.5 (11.4-16.0) gm/dL Hct 40.2 (34.0-46.0) % MCV 82.0 (80.0-100.0) fL MCH 27.5 (25.0-35.0) pg MCHC 33.5 (31.0-37.0) g/dL RDW 13.7 (11.5-15.5) % Plt Count 245 (150-450) k/uL Neutrophils % 59 % Lymphocytes % 29 % Monocytes % 6 % Eosinophils % 3 % Basophils % 1 % Neutrophils # 3.3 (1.3-7.7) k/uL Lymphocytes # 1.6 (1.0-4.8) k/uL Monocytes # 0.3 (0-1.0) k/uL Eosinophils # 0.2 (0-0.7) k/uL Basophils # 0.0 (0-0.2) k/uL Sodium 139 (137-145) mmol/L Potassium 3.5 (3.5-5.1) mmol/L Chloride 105 (98-107) mmol/L Carbon Dioxide 27 (22-30) mmol/L Anion Gap 7 mmol/L BUN 16 (7-17) mg/dL Creatinine 0.60 (0.52-1.04) mg/dL Est GFR (CKD-EPI)AfAm >90 (>60 ml/min/1.73 sqM) Est GFR (CKD-EPI)NonAf 88 (>60 ml/min/1.73 sqM) Glucose 93 (74-99) mg/dL Calcium 9.3 (8.4-10.2) mg/dL Disposition Clinical Impression: Hypertension Disposition: HOME SELF-CARE Condition: Stable Instructions: Hypertension (ED) Is patient prescribed a controlled substance at d/c from ED?: No Referrals: Luis Daniel Varela DO [Primary Care Provider] - 1-2 days
[2018-06-10 23:59] LABS: Basophils % (A) 1 %; Eosinophils # (A) 0.2 k/uL (0-0.7); Eosinophils % (A) 3 %; HCT 40.2 % (34.0-46.0); HGB 13.5 gm/dL (11.4-16.0); Lymphocytes # (A) 1.6 k/uL (1.0-4.8); Lymphocytes % (A) 29 %; MCH 27.5 pg (25.0-35.0); MCHC 33.5 g/dL (31.0-37.0); Mean Platelet Volume 6.5; Monocytes # (A) 0.3 k/uL (0-1.0); Monocytes % (A) 6 %; Neutrophils # (A) 3.3 k/uL (1.3-7.7); Neutrophils % (A) 59 %; Platelet Count 245 k/uL (150-450); RDW 13.7 % (11.5-15.5); WBC 5.5 k/uL (3.8-10.6)
[2018-06-11 00:03] LABS: Anion Gap 7 mmol/L; Blood Urea Nitrogen 16 mg/dL (7-17); Calcium 9.3 mg/dL (8.4-10.2); Carbon Dioxide 27 mmol/L (22-30); Chloride 105 mmol/L (98-107); Glucose 93 mg/dL (74-99); Potassium 3.5 mmol/L (3.5-5.1); Sodium 139 mmol/L (137-145)
[2018-06-11 00:44] VITALS: BP 198/95; PULSE 82; TEMP 98.2
== END 2018-06-11 00:44 | disposition home or self-care (01) ==
LOC: EC 22:53
DX: I10 Essential (primary) hypertension (principal); K21.9 Gastro-esophageal reflux disease without esophagitis; M19.90 Unspecified osteoarthritis, unspecified site; Z86.73 Personal history of transient ischemic attack (TIA), and cerebral infarction without residual deficits; Z91.048 Other nonmedicinal substance allergy status; Z79.899 Other long term (current) drug therapy; Z87.891 Personal history of nicotine dependence
CPT/HCPCS: 36415; 80048; 85025; 93005; 96374; 99284

== ENCOUNTER → 2018-09-13 | Outpatient (CLI) | payer MEDICARE ==
--- NOTE | 2018-09-17 09:07 | MM ---
Reason for exam: screening (asymptomatic). Last mammogram was performed 1 year and 1 month ago. History: Patient is postmenopausal. Family history of breast cancer in mother at age 65 and breast cancer in maternal cousin at age 39. Reductions of both breasts, November 29, 2010. Benign excisional biopsy of the left breast. Took estrogen for 27 years beginning at age 38. Physical Findings: A clinical breast exam by your physician is recommended on an annual basis and results should be correlated with mammographic findings. MG 3D Screening Mammo W/Cad Bilateral CC and MLO view(s) were taken. Prior study comparison: August 13, 2017, right breast MG work up mamm w CAD RT. August 06, 2017, bilateral MG screening mammo w CAD. There are scattered fibroglandular densities. Focal asymmetry stable lower inner quadrant right breast. Benign oil cysts on the left. No significant changes when compared with prior studies. ASSESSMENT: Negative, BI-RAD 1 RECOMMENDATION: Routine screening mammogram of both breasts in 1 year.
== END | disposition home or self-care (01) ==
LOC: RADMAMWWP 14:55
PROVIDERS: ATTEND Family Medicine
DX: Z12.31 Encounter for screening mammogram for malignant neoplasm of breast (principal)
CPT/HCPCS: 77063; 77067

== ENCOUNTER → 2019-09-22 | Outpatient (CLI) | payer MEDICARE ==
--- NOTE | 2019-09-23 10:40 | MM ---
Reason for exam: screening (asymptomatic). Last mammogram was performed 1 year ago. History: Patient is postmenopausal. Family history of breast cancer in mother at age 65 and breast cancer in maternal cousin at age 39. Reductions of both breasts, November 29, 2010. Benign excisional biopsy of the left breast. Took estrogen for 27 years beginning at age 38. Physical Findings: A clinical breast exam by your physician is recommended on an annual basis and results should be correlated with mammographic findings. MG 3D Screening Mammo W/Cad Bilateral CC and MLO view(s) were taken. Prior study comparison: September 13, 2018, bilateral MG 3d screening mammo w/cad. August 13, 2017, right breast MG work up mamm w CAD RT. There are scattered fibroglandular densities. There are benign appearing round dystrophic calcifications bilaterally. There is no discrete abnormality. ASSESSMENT: Benign, BI-RAD 2 RECOMMENDATION: Routine screening mammogram of both breasts in 1 year.
== END | disposition home or self-care (01) ==
LOC: RADMAMWWP 12:28
PROVIDERS: ATTEND Family Medicine
DX: Z12.31 Encounter for screening mammogram for malignant neoplasm of breast (principal)
CPT/HCPCS: 77063; 77067

== ENCOUNTER → 2019-10-08 | Outpatient (CLI) | payer MEDICARE ==
--- NOTE | 2019-10-08 13:54 | CT ---
EXAMINATION TYPE: CT brain lilliamine wo con DATE OF EXAM: 10/08/2019 COMPARISON: CT brain May 26, 2018 HISTORY: cervicalgia, pressure pain in head post fall last year CT DLP: 1275.6 mGycm. Automated Exposure Control for Dose Reduction was Utilized. TECHNIQUE: CT scan of the head and cervical spine are performed without contrast. FINDINGS: There is no acute intracranial hemorrhage or midline shift identified. Diffuse ventricula r and sulcal prominence is redemonstrated. Low attenuation in deep and periventricular white matter i s again seen. Findings consistent with [id number] diffuse cerebral atrophy and chronic small ve ssel ischemic change. The calvarium is intact. The globes are intact and the visualized sinuses are c lear. Cervical spine is visualized in its entirety from C1 through upper thoracic levels and demonstrates s atisfactory alignment without evidence of acute fracture or dislocation. Prevertebral soft tissue ap pears within normal limits. The C1-C2 articulation is within normal limits on the coronal images. Ve rtebral body heights are maintained. There is moderate disc space narrowing C2-C3 level with mild spu rring. There is mild to moderate disc space narrowing C4-C5 and C5-C6 levels. There is fairly severe disc space narrowing with moderate spurring C6-C7 level. There is moderate narrowing and anterior spu rring C7-T1 level. Posterior spur disc complex effaces anterior thecal sac at C6-C7 level. Review of axial images shows multilevel uncovertebral facet degenerative changes contributing to mult ilevel bilateral neural foraminal narrowing most prominent left C3-C4 and C4-C5 levels. Lung apices s how mild apical pleural/parenchymal scarring. Thyroid gland is somewhat small in size. Asymmetric mod erate calcified plaque right carotid bulb level is noted. IMPRESSION: As above.
== END | disposition home or self-care (01) ==
LOC: RADCTMAIN 13:06
PROVIDERS: ATTEND Family Medicine
DX: M99.71 Connective tissue and disc stenosis of intervertebral foramina of cervical region (principal); M47.812 Spondylosis without myelopathy or radiculopathy, cervical region; R90.89 Other abnormal findings on diagnostic imaging of central nervous system; G31.9 Degenerative disease of nervous system, unspecified; I67.82 Cerebral ischemia
CPT/HCPCS: 70450; 72125

== ENCOUNTER → 2020-12-03 | Outpatient (CLI) | payer MEDICARE ==
--- NOTE | 2020-12-07 10:34 | MM ---
Reason for exam: screening (asymptomatic). Last mammogram was performed 1 year and 2 months ago. History: Patient is postmenopausal. Family history of breast cancer in mother at age 65 and breast cancer in maternal cousin at age 39. Reductions of both breasts, November 29, 2010. Benign excisional biopsy of the left breast. Took estrogen for 27 years beginning at age 38. Physical Findings: A clinical breast exam by your physician is recommended on an annual basis and results should be correlated with mammographic findings. MG 3D Screening Mammo W/Cad Bilateral CC and MLO view(s) were taken. Prior study comparison: September 22, 2019, bilateral MG 3d screening mammo w/cad. September 13, 2018, bilateral MG 3d screening mammo w/cad. There are scattered fibroglandular densities. Benign fat necrosis calcifications on the left. No significant changes when compared with prior studies. ASSESSMENT: Negative, BI-RAD 1 RECOMMENDATION: Routine screening mammogram of both breasts in 1 year.
== END | disposition home or self-care (01) ==
LOC: RADMAMWWP 12:56
PROVIDERS: ATTEND Family Medicine
DX: Z12.31 Encounter for screening mammogram for malignant neoplasm of breast (principal)
CPT/HCPCS: 77063; 77067

== ENCOUNTER → 2022-01-31 | Outpatient (CLI) | payer MEDICARE ==
--- NOTE | 2022-02-01 13:57 | MM ---
Reason for exam: screening (asymptomatic). Last mammogram was performed 1 year and 2 months ago. History: Patient is postmenopausal. Family history of breast cancer in 3 maternal aunts, breast cancer in mother at age 65, and breast cancer in maternal cousin at age 39. Reductions of both breasts, November 29, 2010. Benign excisional biopsy of the left breast. Took estrogen for 27 years beginning at age 38. Physical Findings: A clinical breast exam by your physician is recommended on an annual basis and results should be correlated with mammographic findings. MG 3D Screening Mammo W/Cad Bilateral CC and MLO view(s) were taken. Prior study comparison: December 03, 2020, bilateral MG 3d screening mammo w/cad. September 22, 2019, bilateral MG 3d screening mammo w/cad. The breast tissue is heterogeneously dense. This may lower the sensitivity of mammography. Stable benign calcifications. There is no discrete abnormality. No significant changes when compared with prior studies. ASSESSMENT: Benign, BI-RAD 2 RECOMMENDATION: Routine screening mammogram of both breasts in 1 year.
== END | disposition home or self-care (01) ==
LOC: RADMAMWWP 13:07
PROVIDERS: ATTEND Family Medicine
DX: Z12.31 Encounter for screening mammogram for malignant neoplasm of breast (principal); Z78.0 Asymptomatic menopausal state; Z80.3 Family history of malignant neoplasm of breast
CPT/HCPCS: 77063; 77067

== ENCOUNTER → 2022-04-21 | Outpatient (CLI) | payer MEDICARE ==
--- NOTE | 2022-04-21 16:18 | MR ---
EXAMINATION TYPE: MR cspine/lspine wo con DATE OF EXAM: 04/21/2022 COMPARISON: Plain film 02/03/2022, 01/26/2022 HISTORY: Neck and lower back pain, headaches. TECHNIQUE: Multiplanar, multisequence imaging of the cervical and lumbar spine is performed without I V contrast. FINDINGS: Cervical spine MRI: Thoracic scoliotic curvature is suspected. There is no significant spinal stenosi s. Cervical cord signal is normal. Cervical vertebral bodies show preserved height. Multilevel spondy losis is present with endplate discogenic marrow signal change. Loss of disc height signal is present at intervertebral levels consistent with disc desiccation and degenerative disc disease. Similar ali gnment to plain film, minimal spinal listhesis is likely degenerative facet arthropathy. C2-3: There is uncovertebral joint hypertrophy resulting in some foraminal encroachment, associated f acet arthropathy changes are present. No evident disc herniation. C3-4: Marked facet arthropathy is present left greater than right, uncovertebral joint hypertrophy co ntributes to cause left-sided foraminal encroachment. Minimal posterior disc bulge causes only slight anterior mass effect on the thecal sac. C4-5: 1 mild left-sided foraminal encroachment noted. Posterior broad-based disc bulge causes only sl ight anterior mass effect on the thecal sac. C5-6: Posterior extension endplate disc complex causes minimal anterior mass effect on the thecal sac . No significant foraminal encroachment. C6-7: Posterior extension endplate disc complex causes mild anterior mass effect on the thecal sac. T here is some uncovertebral joint hypertrophy results in some mild foraminal encroachment on the left. Lumbar MRI: There is extensive artifact due to patient's hardware, posterior fusion T12-L1. Alignment is thought to be maintained. IMPRESSION: Markedly limited exam due to patient's lumbar fusion.
== END | disposition home or self-care (01) ==
LOC: RADMRIMAIN 14:32
PROVIDERS: ATTEND Orthopaedic Surgery
DX: M43.26 Fusion of spine, lumbar region (principal)
CPT/HCPCS: 72141; 72148

== ENCOUNTER → 2022-05-10 | Outpatient (CLI) | payer MEDICARE ==
[2022-05-10 13:03] VITALS: PULSE 74; RESP 16; TEMP 98.7
--- NOTE | 2022-05-10 13:17 | P.PAINPG ---
PQRS Measure Charge Sheet Comment: HISTORY OF PRESENT ILLNESS: 81 yr old female as a referral from Dr. Gaines presents today with severe and chronic cervical pain secondary to disc bulges, neuroforaminal stenoses, spondylosis and facet arthropathy for evaluation. She states her pain level is currently at 5/10 in intensity, localized to the lower aspect of her cervical pain with radiation to back of the shoulders. It is intermittent, sharp & pressure like in character. It is provoked with laying on her side and hyperextension. Pain is relieved slightly with PT in March 2022 for 6 weeks, massage integrated with PT, heat, medications ([place]), topicals, and repositioning. PMH: GERD, Hyperlipidemia, HTN, Hiatal Hernia, OA PSH: Appendectomy, T1-T12 Fusion, RK BL Eyes, Bladder Suspension, Cholecystectomy, Hysterectomy, L Knee Replacement, R Knee Replacement, R Shoulder Arthroscopy, BL Cataract Extraction, R Eye Surgery x 2 (2015) Social History: Former smoker, Rare ETOH use, No illicit drug use. FH: Mother- Breast CA. Father- Bone CA. All: See list Meds: See list REVIEW OF ORGAN SYSTEMS: CONSTITUTIONAL: No fevers or chills. No recent weight loss. HEENT: No visual acuity loss, eye pain, difficulties with hearing. No nosebleeds. No difficulty swallowing. RESPIRATORY: Denies any troubles with breathing or dyspnea on exertion. CARDIOVASCULAR: Denies any chest pain, palpitations, or recent heart attacks. GASTROINTESTINAL: Denies fatty food intolerance. Has change in bowel habits and gas bloat. GENITOURINARY: Denies any blood in urine. Has increased urinary frequency. NEUROLOGICAL: + numbness and tingling along the distal extremities. No seizure disorders or headaches. MUSCULOSKELETAL: + back pain SKIN: No skin cancer. No rash. PSYCHIATRIC: Denies current depression or suicidal thoughts. ENDOCRINE: Denies current thyroid disorders. Denies any blood sugar glucose intolerance. HEME/LYMPHATIC: Denies any lumps and bumps around the neck. History of deep venous thrombosis. ALLERGY/IMMUNOLOGY: No immunoglobulin therapy. No immune deficiencies. BREAST: Denies current breast lumps, pain or nipple discharge. Physical Examinations : Constitutional : Cooperative , not in acute distress . HEENT: Neck supple. No Lymphadenopathy. Normal thyroid size . Eyes no ptosis , no icterus, no photophobia . Hearing intact. Normal oropharynx. No Thrush. Respiratory : Chest clear to auscultations bilaterally. No wheezing. No rhonchi. Cardiovascular : Regular rate and rhythm , S1 / S2. No S3 . No S4. Gastrointestinal : Abdomen soft. No tenderness. Bowel sounds x 4. No organomegaly . Genitourinary : Deferred. Neurologic : Cranial nerve II to XII intact. No focal neurological deficits. Psychiatric : alert & oriented x 3. Matching mood & appropriate affect. Judgment & insight intact. Lymphatic No Lymphadenopathy. Musculoskeletal : Cervical Spine Motor strength in the deltoid and bicep s: Normal right side. Normal Left side Motor strength biceps and the wrist extensors: Normal right side . Normal left side Motor strength in the triceps muscle: Normal right side. Normal left side Deep tendon reflexes: Normal at the biceps. Normal at Brachioradialis. Normal at triceps Cervical facet loading test: positive bilaterally over C4-C5, C5-C6 w jump reflex Spurling test: positive bilaterally Neck distraction test: positive bilaterally Mohit sign: positive bilaterally Lumbar spine Motor strength lower extremities ,thigh and legs 5/5 Right side , 5/5 Left side Deep tendon reflexes : Normal Knee Jerk. Normal Ankle Jerk Vertebral body tenderness over Lumbar facet Loading Test: positive Right / positive Left Range of motion of the lumbar spine Flexion 30 degrees, extension 10 degrees Straight Leg Raise test: Left/ Right positive at degree Lucille test: positive right / positive left. Severe tenderness over the Sacroiliac joint on the Right / Left sides Gaenslen test: positive bilaterally Seated flexion test: positive bilaterally. Sacral spine : Severe tenderness over the Sacroiliac joint: right side / left side Range of motion: Flexion of the lumbar spine <60 degrees Range of motion: Extension of the lumbar spine <20 degrees Gaenslen's Test positive Damien's Test positive Lucille test: positive right side / left side Thigh Thrust Test Sacral Thrust Test Imaging: MRI without contrast of the cervical spine from 04/21/22 reviewed Assessment/ Plan : Cervical DDD without myelopathy Recommendation of BL facet block of the medial branches C4-C5, C5- C6. May need a series of injections, up until RFA, for optimal pain relief. Risks, benefits of procedure discussed and patient verbalized understanding. Denies a medical history of diabetes. Admits to ASA use. Protocol for discontinuation/ continuation of medications bryan procedure discussed. All questions answered. I have spent greater than 50 minutes on patient care today. Dr Pérez was available by phone for the evaluation of this patient. The time was used to review the medical records including relevant urine studies and Prescription history (MAPs), review of the available imaging, evaluation and examination of the patient, coordination of care with the medical staff and if applicable referring physicians, as well as creation of the medical record PQRS Narrative: Smoking Status Former smoker Home Medications: Ambulatory Orders Omeprazole 20 mg PO QAM 06/18/15 Trospium Chloride [Sanctura] 20 mg PO BID 06/18/15 DULoxetine HCL [Cymbalta] 30 mg PO BID 10/26/17 Cholecalciferol [Vitamin D3 (25 Mcg = 1000 Iu)] 2,000 unit PO DAILY tab 10/30/17 HYDROcodone/APAP 7.5-325MG [[place] 7.5-325] 1 tab PO Q8H PRN 05/27/18 Valsartan [Diovan] 80 mg PO DAILY 05/27/18 Aspirin 81 mg PO BID #0 05/28/18 Atorvastatin [Lipitor] 80 mg PO HS #30 tab 05/28/18 Calcium Carb-Vit D 500Mg-5Mcg [[place] 500+D 5 Mcg (200 Iu)] 1 tab PO DAILY 06/10/18 Controlled Substance Measures - Controlled Substance Measures Is patient prescribed a controlled substance at discharge?: No
[2022-05-10 13:52] VITALS: BP 158/86
== END ==
LOC: PNWHC3 12:24
PROVIDERS: ATTEND Specialist
DX: M50.10 Cervical disc disorder with radiculopathy, unspecified cervical region (principal); E78.5 Hyperlipidemia, unspecified; I10 Essential (primary) hypertension; M19.90 Unspecified osteoarthritis, unspecified site; Z87.891 Personal history of nicotine dependence; K21.9 Gastro-esophageal reflux disease without esophagitis; Z79.899 Other long term (current) drug therapy; Z88.9 Allergy status to unspecified drugs, medicaments and biological substances; Z91.048 Other nonmedicinal substance allergy status
CPT/HCPCS: 99211

== ENCOUNTER 2022-06-16 12:22 | Day surgery (SDC) | payer MEDICARE ==
[~2022-06-16 12:22] MED LIST changes: -DEXAMETHASONE SOD PHOSPHATE 10 MG/ML 1 ML VIAL IV ONE; -HYDROmorphone 1 MG/ML 1 ML SYRINGE IVP PRN; +LIDOCAINE 1% (10MG/ML) FOR IV START INTRADERMA PRN; -LIDOCAINE 1% 20 ML VIAL (10MG/ML) FOR IV START INTRADERMA PRN; -MIDAZOLAM 2 MG/2 ML VIAL IV PRN; -ONDANSETRON 4 MG/2 ML VIAL IVP ONE; -SCOPOLAMINE 1.5MG/72HR PATCH TRANSDERM ONE; -ceFAZolin 1,000 MG in DEXTROSE/WATER 1 50ML.BAG IV ONE
[2022-06-16 12:42] VITALS: RESP 16; TEMP 97.4
--- NOTE | 2022-06-16 13:17 | P.PN ---
Progress Note - Text Progress Note Date: 06/16/22 This is 81 years old female, with a history of severe and chronic neck pain she is diagnosed with cervical spondylosis with cervical facet arthropathy, and cervical degenerative disc disease, she was scheduled today to have diagnostic medial branch block cervical area bilaterally at C4 5 and C5 6, and the preop holding area patient reported that she doesn't want any sedation to be given, patient was brought to the procedure room, patient placed in prone position then monitors applied to the patient, after that with the x-ray for the cervical spine and I was not able to see the targeted area I was able to see C1-C2 and C3 vertebral, and part of the C4, patient was scheduled to have medial branch block at C4 5 and C5 6, for this reason, a shoulder was placed in supine position, and then I was able to see the targeted area, C4, C5, and C6, and after I prepped the cervical area with chlorhexidine 3, I placed the drape on the patient's face, then patient become claustrophobic and she becomes very anxious and agitated and she reported that she cannot do it this way, and the only way he can be done if we remove the drape from her face, for this reason I explained to the patient that we have to have the sterility during the procedure, then patient reported that she wished to cancel the procedure today and she wanted to have it done next time with the sedation, the patient will be rescheduled, to have diagnostic medial branch block cervical area bilaterally at C4 5 and C5 6 with sedation
[2022-06-16 13:21] VITALS: BP 124/66; PULSE 80
--- NOTE | 2022-06-16 16:19 | FL ---
Fluoroscopy HISTORY: Pain 5 seconds fluoroscopy time supplied to the referring clinician. 1 intraoperative C-arm images docume nt the procedure. See dictated report from anesthesia.
== END 2022-06-16 13:25 | disposition home or self-care (01) ==
LOC: ORPAIN 12:22
PROVIDERS: ATTEND Specialist
DX: G89.29 Other chronic pain (principal); M47.812 Spondylosis without myelopathy or radiculopathy, cervical region; M50.30 Other cervical disc degeneration, unspecified cervical region; Z91.09 Other allergy status, other than to drugs and biological substances; Z53.8 Procedure and treatment not carried out for other reasons

== ENCOUNTER 2022-07-14 09:17 | Day surgery (SDC) | payer MEDICARE ==
[2022-07-13 13:59] VITALS: BMI 26.1
[2022-07-14 09:41] VITALS: TEMP 97
[2022-07-14] MEDS ORDERED: LACTATED RINGERS 1,000 ML IV ONE (09:50)
[2022-07-14] MEDS ORDERED: DEXAMETHASONE SOD PHOSPHATE 10 MG/ML 1 ML VIAL ONE (10:10)
[2022-07-14] MEDS ORDERED: MIDAZOLAM 2 MG/2 ML VIAL ONE (10:10)
[2022-07-14] MEDS ORDERED: ROPIVACAINE 5MG/ML 20ML VIAL ONE (10:10)
[2022-07-14] MEDS ORDERED: fentaNYL (PF) 50 MCG/ML 2 ML AMP ONE (10:10)
--- NOTE | 2022-07-14 10:34 | P.PCN ---
Date of Procedure: 07/14/22 Description of Procedure: PREOPERATIVE DIAGNOSIS: Cervical Facet syndrome /cervical spondylosis. POSTOPERATIVE DIAGNOSIS: Cervical Facet syndrome /cervical spondylosis. PROCEDURES: Bilateral cervical C4-C5, and C5-C6 medial branch injections, with fluoroscopic guidance #1, SURGEON: Rossy Shelton ANESTHESIA: 5ml of Local lidocaine 1% , and IV sedation with : versed 2mg, and Fentanyl 100 mcg EBL: None Specimen removed: None Fluoroscopic image: Saved to electronic medical records. PROCEDURE INDICATION: Patient had chronic neck pain. He tried conservative therapy with minimal benefits. Came here for intervention procedure. PROCEDURE DESCRIPTION: The patient was seen and identified in the preoperative area. Risks, benefits, complications, and alternatives were discussed with the patient. The patient agreed to pursue with the procedure and signed the consent. IV was started and vital signs were stable. Patient was taken to the procedure room and time out was completed. The patient was placed in the prone position on the procedure table and cervical area was prepped with ChloraPrep 1 and draped in the usual sterile fashion. Critical pause was taken. Vital signs were closely monitored during the procedure. Using AP fluoroscopy, right side the waists of lateral margins of C4, C5, and C6 were identified and localized with 1% lidocaine. We used 25-gauge 3-1/2 inch spinal needles 3 used for the procedure. Using the posterior approach, spinal cannulas were guided by anterior posterior fluoroscopy to the waists of the lateral masses of C4, C5, and C6. Needle tip position was confirmed at the centroid of the trapezoids of C4, C5, and C6 with lateral fluoroscopy. After negative aspiration of CSF and blood and with no paresthesias 0.5 mL of block solution injected at each site. Block solution contained 10 MG of dexamethasone and 4 mL of preservative-free ropivacaine 0.5%. [place] were removed intact. Entire procedure repeated on the left side . [place] removed intact. Skin was cleansed and bandages were applied. COMPLICATIONS: None. DISPOSITION / PLANS: The patient was placed in a supine position and transferred to the recovery area in a stable condition for observation and was discharged from the recovery room after meeting discharge criteria. Home discharge instructions given to the patient by the staff. The patient was reexamined prior to discharge. Scheduled to follow up with the pain clinic in 2- 4 weeks duration.
[2022-07-14] MEDS ORDERED: LACTATED RINGERS 1,000 ML IV SCH (10:45)
[2022-07-14] MEDS ORDERED: IV FLUID CONTINUATION 750 ML IV ONE (10:50)
--- NOTE | 2022-07-14 10:50 | FL ---
Intraoperative/procedural fluoroscopic services were provided. Total fluoroscopy time is 12 seconds w ith a total of 5 submitted images to PACS. Please see the operative/procedural note for further detai ls.
[2022-07-14 11:06] VITALS: BP 114/63; PULSE 64; RESP 20
== END 2022-07-14 11:12 | disposition home or self-care (01) ==
LOC: ORPAIN 09:17
DX: M47.812 Spondylosis without myelopathy or radiculopathy, cervical region (principal); G89.29 Other chronic pain; I10 Essential (primary) hypertension; K21.9 Gastro-esophageal reflux disease without esophagitis; M19.90 Unspecified osteoarthritis, unspecified site; Z86.73 Personal history of transient ischemic attack (TIA), and cerebral infarction without residual deficits; Z91.09 Other allergy status, other than to drugs and biological substances
CPT/HCPCS: 64490; 64491; J2250; J1100; J3010; J2795

== ENCOUNTER → 2022-07-31 | Outpatient (CLI) | payer MEDICARE ==
[2022-07-31 13:04] VITALS: BP 194/89; PULSE 73; RESP 18
--- NOTE | 2022-07-31 16:20 | P.PAINPG ---
Objective - Vital Signs Vital signs: Vital Signs Temp Pulse 73 07/31/22 12:58 Resp 18 07/31/22 12:58 BP 194/89 07/31/22 12:58 Pulse Ox 97 07/31/22 12:58 FiO2 PQRS Measure Charge Sheet Mode of Arrival: Ambulatory Comment: A 81 yr old female with a history of severe and chronic neck pain secondary to cervical degenerative disc diseases and spondylosis with facet arthropathy without myelopathy presents today for evaluation s/p MBB BL C4-C5, C5-C6 #1. Pt states she experienced 90% pain relief x 1 day s/p procedure. Pain level is currently at 5/10 in intensity, constant, localized in L side of neck, dull/ achy in character w shooting towards the BL shoulders. Pain is provoked by hyperextension. Pain is alleviated with PT in February 2022 which was too painful, heat, ([place], Celebrex, Tylenol), repositioning and rest. Interventional pain procedures completed include MBB C4-C5, C5-C6 x1 Patient is currently on [place], Celebrex, Tylenol. Patient denies any side effects of the medication(s), denies excessive drowsiness or sleepiness, denies suicidal ideation and reports that the current pain medication is helping to control the pain and improve activities of daily living. Patient denies any motor or sensory deficits. Patient denies any fever or night sweats, denies any change in the bowel movements or urination. Physical Examination: -Constitutional: Cooperative. Not in acute distress . - Neurologic: Cranial nerve II to XII intact. No focal neurological deficits. - Psychatric: Alert & oriented x 3. Matching mood & appropriate affect. Judgment and insight intact. - Musculoskeletal: Cervical spine: Muscle bulk/ tone/ strength in the bilateral upper extremities normal Vertebral body tenderness to palpation over Spurling test positive over BL C4-C5, C5-C6 Distraction test positive Facet loading test positive Thoracic spine Muscle bulk / tone/ strength in the bilateral paraspinal muscles normal Vertebral body tender to palpation over Facet loading test positive Lumbar spine: Motor bulk/ tone/ strength lower extremities , thigh and legs : 5/5 Deep tendon reflexes : Normal Knee Jerk. Normal Ankle Jerk . Vertebral body tenderness to palpation over Lumbar Facet Loading Test positive Straight Leg Raise: positive at 30 degrees right side/ left side Gaenslen's Test positive Sacral spine : Severe tenderness over the Sacroiliac joint: right side / left side Range of motion: Flexion of the lumbar spine <60 degrees Range of motion: Extension of the lumbar spine <20 degrees Gaenslen's Test positive Damien's Test positive Lucille test: positive right side / left side Thigh Thrust Test Sacral Thrust Test Assessment and plan: Chronic neck pain secondary to cervical degenerative disc disease , spondylosis with facet arthropathy without myelopathy Recommendation of MBB C4-C5, C5-C6 #2. May need a series of injections, up until RFA, for optimal pain relief. Risks, benefits of procedure discussed and pt verbalized understanding. Admits to anticoagulant use and denies medical history of diabetes. Protocol for discontinuation/ continuation of medications bryan procedure discussed. All patient questions answered MAPS reviewed and it was appropriate. I have spent less than 30 minutes on patient care today. Dr Pérez was available by phone for the evaluation of this patient. The time was used to review the medical records including relevant urine studies and Prescription history (MAPs), review of the available imaging, evaluation and examination of the patient, coordination of care with the medical staff and if applicable referring physicians, as well as creation of the medical record - Pain Location Neck Non-Pharmacological Interventions: Heat, Physical Therapy, Position/Reposition Pharmacological Interventions: Block, PRN Medication PQRS Narrative: Smoking Status Former smoker Blood Pressure 194/89 Pain Intensity [Neck] 5 Scale Used Numeric (1 - 10) Hx Alcohol Use ([facility]) No Home Medications: Ambulatory Orders Omeprazole 20 mg PO QAM 06/18/15 Trospium Chloride [Sanctura] 20 mg PO BID 06/18/15 Cholecalciferol [Vitamin D3 (25 Mcg = 1000 Iu)] 2,000 unit PO DAILY tab 10/30/17 HYDROcodone/APAP 7.5-325MG [[place] 7.5-325] 1 tab PO Q8H PRN 05/27/18 Aspirin 81 mg PO DAILY 07/13/22 Atorvastatin [Lipitor] 40 mg PO HS 07/13/22 Calcium Carbonate [Calcium] 600 mg PO DAILY 07/13/22 Celecoxib [CeleBREX] 200 mg PO BID 07/13/22 Cetirizine HCl [Zyrtec] 10 mg PO DAILY 07/13/22 Losartan Potassium [Cozaar] 100 mg PO QAM 07/13/22 Lutein 40 mg PO DAILY 07/13/22 amLODIPine [Norvasc] 5 mg PO 1200 07/13/22 carvediloL [Coreg] 6.25 mg PO BID 07/13/22 flaxseed oiL [[place]-3 Flaxseed Oil] 1,000 mg PO DAILY 07/13/22 hydroCHLOROthiazide 12.5 mg PO DAILY 07/13/22 Controlled Substance Measures - Controlled Substance Measures Is patient prescribed a controlled substance at discharge?: No
== END ==
LOC: PNWHC3 12:39
PROVIDERS: ATTEND Specialist
DX: M47.812 Spondylosis without myelopathy or radiculopathy, cervical region (principal); G89.29 Other chronic pain; M50.30 Other cervical disc degeneration, unspecified cervical region; Z87.891 Personal history of nicotine dependence; Z88.9 Allergy status to unspecified drugs, medicaments and biological substances; Z91.048 Other nonmedicinal substance allergy status
CPT/HCPCS: 99211

== ENCOUNTER 2022-08-31 08:26 | Day surgery (SDC) | payer MEDICARE ==
[2022-08-31 08:50] VITALS: TEMP 97.6
[2022-08-31] MEDS ORDERED: LACTATED RINGERS 1,000 ML IV ONE (09:04)
[2022-08-31] MEDS ORDERED: MIDAZOLAM 2 MG/2 ML VIAL ONE (09:27)
[2022-08-31] MEDS ORDERED: IOPAMIDOL M200 10 ML VIAL ONE (09:27)
[2022-08-31] MEDS ORDERED: fentaNYL (PF) 50 MCG/ML 2 ML AMP ONE (09:27)
[2022-08-31] MEDS ORDERED: DEXAMETHASONE SOD PHOSPHATE 10 MG/ML 1 ML VIAL ONE (09:27)
[2022-08-31] MEDS ORDERED: ROPIVACAINE 5 MG/ML 20 ML AMPULE ONE (09:27)
--- NOTE | 2022-08-31 09:56 | P.PCN ---
Date of Procedure: 08/31/22 Description of Procedure: PREOPERATIVE DIAGNOSIS: Cervical Facet syndrome /cervical spondylosis. POSTOPERATIVE DIAGNOSIS: Cervical Facet syndrome /cervical spondylosis. PROCEDURES: Bilateral cervical C4-C5, and C5-C6 medial branch injections, with fluoroscopic guidance #2, SURGEON: Lei Richards MD ANESTHESIA: IV sedation with : versed 1mg, and Fentanyl 50 mcg EBL: None SEDATION TIME: Specimen removed: None Fluoroscopic image: Saved to electronic medical records. PROCEDURE INDICATION: Patient had chronic neck pain. He tried conservative therapy with minimal benefits. Came here for intervention procedure. PROCEDURE DESCRIPTION: The patient was seen and identified in the preoperative area. Risks, benefits, complications, and alternatives were discussed with the patient. The patient agreed to pursue with the procedure and signed the consent. IV was started and vital signs were stable. Patient was taken to the procedure room and time out was completed. The patient was placed in the prone position on the procedure table and cervical area was prepped with ChloraPrep 1 and draped in the usual sterile fashion. Critical pause was taken. Vital signs were closely monitored during the procedure. Using AP fluoroscopy, right side the waists of lateral margins of C4, C5, and C6 were identified. We used 25-gauge 3-1/2 inch spinal needles 3 used for the procedure. Using the posterior approach, spinal cannulas were guided by anterior posterior fluoroscopy to the waists of the lateral masses of C4, C5, and C6. Needle tip position was confirmed at C4, C5, and C6 with contralateral fluoroscopy. After negative aspiration of CSF and blood and with no paresthesias 0.5 mL of block solution injected at each site. Block solution contained 10 MG of dexamethasone and 4 mL of preservative-free ropivacaine 0.5%. [place] were removed intact. Entire procedure repeated on the left side . [place] removed intact. Skin was cleansed and bandages were applied. COMPLICATIONS: None. DISPOSITION / PLANS: The patient was placed in a supine position and transferred to the recovery area in a stable condition for observation and was discharged from the recovery room after meeting discharge criteria. Home discharge instructions given to the patient by the staff. The patient was reexamined prior to discharge. Scheduled to follow up with the pain clinic in 2- 4 weeks duration.
[2022-08-31] MEDS ORDERED: LACTATED RINGERS 1,000 ML IV SCH (10:00)
[2022-08-31] MEDS ORDERED: IV FLUID CONTINUATION 1,000 ML IV ONE (10:01)
[2022-08-31 10:06] VITALS: RESP 18
--- NOTE | 2022-08-31 10:16 | FL ---
Intraoperative/procedural fluoroscopic services were provided for bilateral cervical facet block. Tot al fluoroscopy time is 53 seconds with a total of 5 submitted images to PACS. Please see the operativ e note for further details.
[2022-08-31 10:25] VITALS: BP 125/78; PULSE 78
== END 2022-08-31 10:33 | disposition home or self-care (01) ==
LOC: ORPAIN 08:26
PROVIDERS: ATTEND Anesthesiology
DX: M47.812 Spondylosis without myelopathy or radiculopathy, cervical region (principal)
CPT/HCPCS: 64490; 64491; J2250; J1100; J3010; Q9966; J2795; 99152

== ENCOUNTER → 2022-09-13 | Outpatient (CLI) | payer MEDICARE ==
[2022-09-13 13:20] VITALS: BP 185/120; PULSE 84; RESP 18; TEMP 98
--- NOTE | 2022-09-13 14:27 | P.PAINPG ---
PQRS Measure Charge Sheet Comment: A 81 yr old female with a history of severe and chronic neck pain secondary to cervical degenerative disc diseases and spondylosis with facet arthropathy without myelopathy presents today for evaluation s/p BL MBB C4-C5, C5-C6 #2. Pt states she experienced 100% pain relief x 2 days s/p procedure. Pain level is currently at 7/10 in intensity, constant, localized in the mid cervical spine, sore/ sharp in character w shooting towards the back of the head. Pain is provoked by hyperextension. Pain is alleviated with PT x 12 sessions in March 2022, massage integrated w PT, medications (Tylenol, [place]), heat, heating pad use, repositioning and rest. Interventional pain procedures completed include BL MBB C4-C6 x2 Patient is currently on [place], Tylenol Patient denies any side effects of the medication(s), denies excessive drowsiness or sleepiness, denies suicidal ideation and reports that the current pain medication is helping to control the pain and improve activities of daily living. Patient denies any motor or sensory deficits. Patient denies any fever or night sweats, denies any change in the bowel movements or urination. Physical Examination: -Constitutional: Cooperative. Not in acute distress . - Neurologic: Cranial nerve II to XII intact. No focal neurological deficits. - Psychatric: Alert & oriented x 3. Matching mood & appropriate affect. Judgment and insight intact. - Musculoskeletal: Cervical spine: Muscle bulk/ tone/ strength in the bilateral upper extremities normal Vertebral body tenderness to palpation over Spurling test positive Distraction test positive Facet loading test positive w lateral flexion. BL C4-C5, C5-C6 facet TTP w jump reflex Thoracic spine Muscle bulk / tone/ strength in the bilateral paraspinal muscles normal Vertebral body tender to palpation over Facet loading test positive Lumbar spine: Motor bulk/ tone/ strength lower extremities , thigh and legs : 5/5 Deep tendon reflexes : Normal Knee Jerk. Normal Ankle Jerk . Vertebral body tenderness to palpation over Lumbar Facet Loading Test positive Straight Leg Raise: positive at 30 degrees right side/ left side Gaenslen's Test positive Sacral spine : Severe tenderness over the Sacroiliac joint: right side / left side Range of motion: Flexion of the lumbar spine <60 degrees Range of motion: Extension of the lumbar spine <20 degrees Gaenslen's Test positive Damien's Test positive Lucille test: positive right side / left side Thigh Thrust Test Sacral Thrust Test Assessment and plan: Chronic neck pain secondary to cervical degenerative disc disease, spondylosis with facet arthropathy without myelopathy Recommendation of BL RFA C4-C5, C5-C6. Pt exhibited sufficient and satisfactory intermittent pain relief w prior MBB procedures. Risks, benefits of procedure discussed and pt verbalized understanding. Admits to anticoagulant use or medical history of diabetes. Protocol for discontinuation/ continuation of medications bryan procedure discussed. All patient questions answered I have spent less than 30 minutes on patient care today. Dr Pérez was available by phone for the evaluation of this patient. The time was used to review the medical records including relevant urine studies and Prescription history (MAPs), review of the available imaging, evaluation and examination of the patient, coordination of care with the medical staff and if applicable referring physicians, as well as creation of the medical record PQRS Narrative: Smoking Status Former smoker Hx Alcohol Use (MH) No Home Medications: Ambulatory Orders Omeprazole 20 mg PO QAM 06/18/15 Trospium Chloride [Sanctura] 20 mg PO BID 06/18/15 Cholecalciferol [Vitamin D3 (25 Mcg = 1000 Iu)] 2,000 unit PO DAILY tab 10/30/17 HYDROcodone/APAP 7.5-325MG [[place] 7.5-325] 1 tab PO Q8H PRN 05/27/18 Aspirin 81 mg PO DAILY 07/13/22 Atorvastatin [Lipitor] 40 mg PO HS 07/13/22 Calcium Carbonate [Calcium] 600 mg PO DAILY 07/13/22 Celecoxib [CeleBREX] 200 mg PO BID 07/13/22 Cetirizine HCl [Zyrtec] 10 mg PO DAILY 07/13/22 Losartan Potassium [Cozaar] 100 mg PO QAM 07/13/22 Lutein 40 mg PO DAILY 07/13/22 amLODIPine [Norvasc] 5 mg PO 1200 07/13/22 carvediloL [Coreg] 6.25 mg PO BID 07/13/22 hydroCHLOROthiazide 12.5 mg PO DAILY 07/13/22 Controlled Substance Measures - Controlled Substance Measures Is patient prescribed a controlled substance at discharge?: No
== END ==
LOC: PNWHC3 12:39
PROVIDERS: ATTEND Specialist
DX: M47.816 Spondylosis without myelopathy or radiculopathy, lumbar region (principal); M50.30 Other cervical disc degeneration, unspecified cervical region; G89.29 Other chronic pain; Z79.01 Long term (current) use of anticoagulants; E11.9 Type 2 diabetes mellitus without complications; Z79.4 Long term (current) use of insulin; Z87.891 Personal history of nicotine dependence; Z91.048 Other nonmedicinal substance allergy status
CPT/HCPCS: 99211

== ENCOUNTER 2022-11-03 08:44 | Day surgery (SDC) | payer MEDICARE ==
[2022-11-02 09:24] VITALS: BMI 27.1
[2022-11-03] MEDS ORDERED: LACTATED RINGERS 1,000 ML IV ONE (09:31)
[2022-11-03 09:36] VITALS: RESP 16; TEMP 97
[2022-11-03] MEDS ORDERED: LACTATED RINGERS 1,000 ML IV SCH (10:00)
[2022-11-03] MEDS ORDERED: MIDAZOLAM 2 MG/2 ML VIAL ONE (10:04)
[2022-11-03] MEDS ORDERED: DEXAMETHASONE SOD PHOSPHATE 10 MG/ML 1 ML VIAL ONE (10:04)
[2022-11-03] MEDS ORDERED: fentaNYL (PF) 50 MCG/ML 2 ML AMP ONE (10:04)
[2022-11-03] MEDS ORDERED: ROPIVACAINE 5 MG/ML 20 ML AMPULE ONE (10:04)
--- NOTE | 2022-11-03 10:34 | P.PCN ---
Date of Procedure: 11/03/22 Description of Procedure: PREOPERATIVE DIAGNOSIS: Cervical Facet syndrome /cervical spondylosis. POSTOPERATIVE DIAGNOSIS: Cervical Facet syndrome /cervical spondylosis. PROCEDURES: Left Radiofrequency thermocoagulation of C4-C5, and C5-C6 medial branches, with fluoroscopic guidance, SURGEON: Rossy Shelton ANESTHESIA: Local , and IV sedation: Versed 2mg , and fentanyl 50 mcg EBL: None Specimen removed: None Fluoroscopic image: Saved to electronic medical records. PROCEDURE INDICATION: The patient returns for cervical RFTC following previous positive diagnostic nerve blocks. Patient tried conservative therapy with marginal pain relief. PROCEDURE DESCRIPTION: The patient was seen and identified in the preoperative area. Risks, benefits, complications, and alternatives were discussed with the patient. The patient agreed to pursue with the procedure and signed the consent. IV was started and vital signs were stable. Patient was taken to the procedure room and time out was completed. The patient was placed in the prone position on the procedure table and cervical area was prepped with ChloraPrep 2 and draped in the usual sterile fashion. Critical pause was taken. Vital signs were closely monitored during the procedure. Using AP fluoroscopy, the waists of lateral margins of C4, C5, and C6 were identified and localized with 1 mL of 1% lidocaine. Used 20 [id number] radiofrequency cannula with a 10-mm active tip. Using the posterior approach, radiofrequency cannulas were guided by anterior posterior fluoroscopy to the waists of the lateral masses of C4, C5, and C6. Needle tip position was confirmed at the centroid of the trapezoids of C4, C5, and C6 with lateral fluo roscopy. Each site then underwent motor testing was done at 2 Hz and 0 to 2.5 volt with local stimulation, but no radicular symptoms down the arm. After negative aspiration for blood and CSF , 0.5 mill of block solution were given, and then C4,C5 and C6 sites underwent radiofrequency thermocoagulation at 80 degrees celsius for 90 seconds. After thermocoagulation, the C4, C5, and C6 underwent injection of 0.5 mL of block solution after negative aspiration of CSF and blood and with no paresthesias. Block solution contained 10 MG of dexamethasone and 3 mL of preservative-free ropivacaine 0. 5%. Cannulas were retracted approximately 1 cm and then upon further withdrawal of the needles, the skin was infiltrated with 1 mL of 0.5% ropivacaine at each level. Skin was cleansed and bandages were applied. COMPLICATIONS: None. DISPOSITION / PLANS: The patient was placed in a supine position and transferred to the recovery area in a stable condition for observation and was discharged from the recovery room after meeting discharge criteria. Home discharge instructions given to the patient by the staff. The patient was reexamined prior to discharge. The patient will schedule a left side cervical radiofrequency ablation in 4 weeks.
[2022-11-03] MEDS ORDERED: IV FLUID CONTINUATION 1,000 ML IV ONE (10:38)
--- NOTE | 2022-11-03 10:47 | FL ---
Fluoroscopy INDICATION: Pain FINDINGS: Fluoroscopy time: 23 seconds. Images obtained: 2. IMPRESSIONS: 1. Documentation of fluoroscopy.
[2022-11-03 10:54] VITALS: BP 137/85; PULSE 64
== END 2022-11-03 11:18 | disposition home or self-care (01) ==
LOC: ORPAIN 08:44
DX: M47.812 Spondylosis without myelopathy or radiculopathy, cervical region (principal); I10 Essential (primary) hypertension; E78.00 Pure hypercholesterolemia, unspecified; M19.90 Unspecified osteoarthritis, unspecified site; K21.9 Gastro-esophageal reflux disease without esophagitis; Z91.048 Other nonmedicinal substance allergy status; Z86.73 Personal history of transient ischemic attack (TIA), and cerebral infarction without residual deficits; Z79.82 Long term (current) use of aspirin; Z79.899 Other long term (current) drug therapy
CPT/HCPCS: 64633; 64634; J2250; J1100; J3010; J2795

== ENCOUNTER 2022-12-15 09:16 | Day surgery (SDC) | payer MEDICARE ==
[2022-12-13 12:16] VITALS: BMI 26.4
[2022-12-15 09:43] VITALS: TEMP 97
[2022-12-15] MEDS ORDERED: fentaNYL (PF) 50 MCG/ML 2 ML AMP ONE (09:57)
[2022-12-15] MEDS ORDERED: MIDAZOLAM 2 MG/2 ML VIAL ONE (09:57)
--- NOTE | 2022-12-15 10:25 | P.PCN ---
Date of Procedure: 12/15/22 Procedure(s) Performed: PREOPERATIVE DIAGNOSIS: Cervical spondylosis with Facet Arthropathy without myelopathy. POSTOPERATIVE DIAGNOSIS: Cervical spondylosis with Facet Arthropathy without myelopathy. PROCEDURES: Radiofrequency thermocoagulation, Right C4, C5, C6 medial branch with Fluroscopy [place](fluoroscopy was available in Radiology department ) (to denervate the facet joint at Right C4- 5 , C5- 6 ) ANESTHESIA: Monitored anesthesia care as per anesthesia department . EBL: Minimal PROCEDURE INDICATION: The patient with neck pain secondary to cervical arthropathy who had more than 50% relief of her pain with previous diagnostic cervical medial branch block. PROCEDURE DESCRIPTION / TECHNIQUE: The patient was seen and identified in the preoperative area. Risks, benefits, complications, and alternatives were discussed with the patient, the patient agreed to proceed with the procedure and signed the consent. IV was started. Vital signs remained stable throughout the procedure. Patient was taken to the OR and time out was completed. The patient was placed in the prone position on the procedure table. A pillow was placed under the patients chest to increase the cervical interlaminar space. The cervical area was prepped and draped in the usual sterile fashion. Critical pause was taken. Vital signs were closely monitored during the procedure. Conscious sedation was used during the procedure to decrease patients anxiety. Using cross-table lateral fluoroscopy, the centroid of the trapezoid of right C4, C5, and C6 were identified, marked, and localized with 1% lidocaine. Subsequently, a 20 [id number] radiofrequency cannula with a 10-mm active tip was advanced guided by fluoroscopy to the centroid of the trapezoid of right C4, C5, and C6 . Needle tip position was confirmed at the centroid of the trapezoids of right C4, C5, and C6 with anteroposterior fluoroscopy. Each site then underwent sensory testing at 50 Hz and 0 to 1 volt and motor testing at 2 Hz and 0 to 3 volt with local stimulation, but no radicular symptoms down the arm. Thereafter each sites underwent radiofrequency thermocoagulation at 80 degrees celsius for 90 seconds after injecting 0.5 ml of PF Ropivacaine 0.5 %. After thermocoagulation, 1 ml of the block solution containing Depo-Medrol 40 mg and 3 mL of preservative-free normal saline was injected at the right C4, C5, and C6 levels after negative aspiration of CSF and blood and with no paresthesias. Cannulas were retracted while injecting lidocaine 1% until the needle is out. Skin was cleansed and bandages were applied. COMPLICATIONS: No acute complications. DISPOSITION / PLANS: The patient was placed in a supine position and transferred to the recovery area in a stable condition for observation and was discharged from the recovery room after meeting discharge criteria. Home discharge instructions given to the patient by the staff. The patient was reexamined prior to discharge. The patient will schedule a follow up in the clinic in 2-4 weeks.
[2022-12-15] MEDS ORDERED: IV FLUID CONTINUATION 1,000 ML IV ONE (10:29)
[2022-12-15 10:45] VITALS: BP 122/80; PULSE 64; RESP 18
--- NOTE | 2022-12-15 11:19 | FL ---
EXAMINATION TYPE: FL guided pain mgmt statistic DATE OF EXAM: 12/15/2022 CLINICAL HISTORY: Neck pain. TECHNIQUE: Fluoroscopy. COMPARISON: None. FINDINGS: Fluoroscopic guidance was provided during pain relief procedure performed by Dr. Pérez . A total of 8 seconds of fluoroscopic time was utilized during the procedure and two spot images ar e acquired. Images acquired shows needle localization at several levels in the cervical spine. IMPRESSION: As Above.
== END 2022-12-15 11:07 | disposition home or self-care (01) ==
LOC: ORPAIN 09:16
PROVIDERS: ATTEND Specialist
DX: M47.812 Spondylosis without myelopathy or radiculopathy, cervical region (principal); I10 Essential (primary) hypertension; K21.9 Gastro-esophageal reflux disease without esophagitis; Z88.8 Allergy status to other drugs, medicaments and biological substances; Z86.73 Personal history of transient ischemic attack (TIA), and cerebral infarction without residual deficits; Z96.653 Presence of artificial knee joint, bilateral; Z98.1 Arthrodesis status; Z98.41 Cataract extraction status, right eye; Z98.42 Cataract extraction status, left eye; Z90.49 Acquired absence of other specified parts of digestive tract; Z98.890 Other specified postprocedural states; Z79.82 Long term (current) use of aspirin; Z79.02 Long term (current) use of antithrombotics/antiplatelets; Z79.1 Long term (current) use of non-steroidal anti-inflammatories (NSAID); Z79.891 Long term (current) use of opiate analgesic; Z79.811 Long term (current) use of aromatase inhibitors; Z79.01 Long term (current) use of anticoagulants; Z79.899 Other long term (current) drug therapy
CPT/HCPCS: 64633; 64634; J2250; J3010

== ENCOUNTER → 2023-02-02 | Outpatient (CLI) | payer MEDICARE ==
--- NOTE | 2023-02-05 18:52 | MM ---
Reason for Exam: Screening (asymptomatic). Last screening mammogram was performed 12 month(s) ago. Patient History: Menarche at age 12. First Full-Term at age 24. Left ovary removed at age 38. Right ovary removed at age 38. Hysterectomy at age 38. Postmenopausal. Estrogen for 27 years from age 38 until age 67. 11/29/2010, Bilateral Reduction. Benign Excisional Biopsy on the left side. Maternal cousin had breast cancer, age 39. Maternal aunt had breast cancer. Maternal aunt had breast cancer. Maternal aunt had breast cancer. Mother had breast cancer, age 65. Risk Values: Purnima 5 year model risk: 3.5%. NCI Lifetime model risk: 4.3%. Prior Study Comparison: 09/22/2019 Bilateral Screening Mammogram, [facility]. 12/03/2020 Bilateral Screening Mammogram, [facility]. 01/31/2022 Bilateral Screening Mammogram, [facility]. Tissue Density: There are scattered fibroglandular densities. Findings: Analyzed By CAD. Unchanged severe linear asymmetric densities on both sides. Unchanged low axillary tail lymph node on the right and lower inner quadrant focal asymmetry right breast anterior to middle depth. Benign or cyst calcifications particularly on the left side. There is no suspicious group of microcalcifications or new suspicious mass in either breast. Overall Assessment: Benign, BI-RAD 2 Management: Screening Mammogram of both breasts in 1 year. 1. Per NCCN guidelines, a 5 year risk greater than 1.67% is used to assess eligibility for risk reduction therapy. Consider specialist referral for further assessment. 2. Patient should continue monthly self breast exams. 3. This exam should not preclude additional follow-up of suspicious palpable abnormalities. Electronically signed and approved by: Gladis Jean M.D. Radiologist
== END | disposition home or self-care (01) ==
LOC: RADMAMWWP 14:23
PROVIDERS: ATTEND Family Medicine
DX: Z12.31 Encounter for screening mammogram for malignant neoplasm of breast (principal); Z78.0 Asymptomatic menopausal state; Z80.3 Family history of malignant neoplasm of breast
CPT/HCPCS: 77063; 77067

== ENCOUNTER 2023-02-13 09:22 | Day surgery (SDC) | payer MEDICARE ==
[2023-02-13 09:59] VITALS: TEMP 98.5
[2023-02-13] MEDS ORDERED: DEXAMETHASONE SOD PHOSPHATE 10 MG/ML 1 ML VIAL ONE (10:18)
[2023-02-13] MEDS ORDERED: MIDAZOLAM 2 MG/2 ML VIAL ONE (10:18)
[2023-02-13] MEDS ORDERED: IOPAMIDOL M200 10 ML VIAL ONE (10:18)
--- NOTE | 2023-02-13 10:33 | P.PCN ---
Date of Procedure: 02/13/23 Procedure(s) Performed: . PROCEDURE 1. Cervical epidural steroid injection under fluoroscopic guidance, C7-T1 (fluoroscopy images available in the radiology department ) 2. Cervical epidurogram. PREOPERATIVE DIAGNOSIS: 1- Cervical Degenerative Disc Diseases 2-cervical spondylosis with cervical Facet arthropathy without myelopathy. POSTOPERATIVE DIAGNOSIS: : 1- Cervical Degenerative Disc Diseases , 2-cervical spondylosis with cervical Facet arthropathy without myelopathy. ANESTHESIA: moderate sedation, with Versed 1 mg . Sedation start time :1022 Sedation end time : 1030 EBL 0 PROCEDURE INDICATION: The patient with neck pain and radiculitis unresponsive to conservative treatment consents for procedure. PROCEDURE DESCRIPTION / TECHNIQUE: The patient was seen and identified in the preoperative area. Risks, benefits, complications, including but not limited to infections ,bleeding , allergic reactions to the medications ,and not complete pain releife, and alternatives were discussed with the patient, the patient agreed to proceed with the procedure and signed the consent. Patient was taken to the OR and time out was completed. The patient was placed in the prone position on the procedure table. A pillow was placed under the patients chest to increase the cervical interlaminar space. The cervical area was prepped and draped in the usual sterile fashion. Vital signs were closely monitored during the procedure. Conscious sedation was used during the procedure to decrease patients anxiety. Using anterior-posterior fluoroscopy, the C7-T1 interlaminar space was identified and the skin over this site was marked and then infiltrated with 1% lidocaine subcutaneously. Subsequently, a 20-gauge 3-1/2-inch Tuohy epidural needle was inserted and advanced toward the epidural space by means of the ``hanging-drop technique and guided by AP and lateral fluoroscopy. The correct needle position in the epidural space was verified with the injection of 2 mL of the water soluble contrast dye Isovue-200 and observing an excellent epidurogram with the epidural spread of the dye, after negative aspiration for blood and CSF and in the absence of paresthesias. then, mixture containing 10 mg Dexamethasone and 2 ml of preservative-free normal saline injected and a washout of epidurogram was seen. Needle was withdrawn intact, skin was cleansed, and bandages were applied. Complications= none. Disposition= patient was placed in supine position and transferred to the recovery room area in stable condition and there was no evidence of upper or lower extremity motor or sensory deficit after the procedure patient was discha rged from recovery room after discharge criteria met and home discharge instructions was given by the staff and patient will follow with the pain clinic in 2-4 weeks
[2023-02-13] MEDS ORDERED: IV FLUID CONTINUATION 1,000 ML IV ONE (10:35)
[2023-02-13 10:37] VITALS: RESP 16
[2023-02-13 10:57] VITALS: BP 132/83; PULSE 73
--- NOTE | 2023-02-13 11:00 | FL ---
EXAMINATION TYPE: FL guided pain mgmt statistic DATE OF EXAM: 02/13/2023 CLINICAL HISTORY: Neck pain. TECHNIQUE: Fluoroscopy. COMPARISON: None. FINDINGS: Fluoroscopic guidance was provided during pain relief procedure performed by Dr. Pérez . A total of 3 seconds of fluoroscopic time was utilized during the procedure and 1 spot images are acquired. Single image acquired shows needle localization at the mid to lower cervical level with co ntrast injection. IMPRESSION: As Above. TOTAL DAP = 0.56926 mGy x m2
== END 2023-02-13 11:19 | disposition home or self-care (01) ==
LOC: ORPAIN 09:22
PROVIDERS: ATTEND Specialist
DX: M50.13 Cervical disc disorder with radiculopathy, cervicothoracic region (principal); M47.22 Other spondylosis with radiculopathy, cervical region; Z88.8 Allergy status to other drugs, medicaments and biological substances; Z91.048 Other nonmedicinal substance allergy status
CPT/HCPCS: 62321; J2250; J1100; Q9966

== ENCOUNTER → 2023-03-12 | Outpatient (CLI) | payer MEDICARE ==
[2023-03-12 13:20] VITALS: BP 153/89; PULSE 77; RESP 18; TEMP 98
--- NOTE | 2023-03-12 15:32 | P.PAINPG ---
PQRS Measure Charge Sheet Comment: A 82 yr old female with a history of severe and chronic neck pain secondary to cervical DDD and spondylosis with facet arthropathy without myelopathy presents today for evaluation s/p ROCIO C7-T1. Pt states she experienced 80 % pain relief x 4 wks s/p procedure. Pain level is provoked at 6/10 in intensity, constant, localized in the cervical spine, tender in character w shooting towards the BL shoulders. Pain is provoked by movement, forward flexion. Pain is alleviated with medications, topicals, injections, heat, PT 6 weeks integrated with massage in February 2022, daily home stretching regimen, repositioning and rest. Interventional pain procedures completed include ROCIO C7-T1 Patient is currently on [place], Tyl Patient denies any side effects of the medication(s), denies excessive drowsiness or sleepiness, denies suicidal ideation and reports that the current pain medication is helping to control the pain and improve activities of daily living. Patient denies any motor or sensory deficits. Patient denies any fever or night sweats, denies any change in the bowel movements or urination. Physical Examination: -Constitutional: Cooperative. Not in acute distress . - Neurologic: Cranial nerve II to XII intact. No focal neurological deficits. - Psychatric: Alert & oriented x 3. Matching mood & appropriate affect. Judgment and insight intact. - Musculoskeletal: Cervical spine: Muscle bulk/ tone/ strength in the bilateral upper extremities normal Vertebral body tenderness to palpation over BL TTP over paraspinal C2-T1, R> L Spurling test positive Distraction test positive Facet loading test positive TTP Thoracic spine Muscle bulk / tone/ strength in the bilateral paraspinal muscles normal Vertebral body tender to palpation over Facet loading test positive TTP Lumbar spine: Motor bulk/ tone/ strength lower extremities , thigh and legs : 5/5 Deep tendon reflexes : Normal Knee Jerk. Normal Ankle Jerk . Vertebral body tenderness to palpation over Lumbar Facet Loading Test positive Straight Leg Raise: positive at 30 degrees right side/ left side Gaenslen's Test positive Sacral spine : Severe tenderness over the Sacroiliac joint: right side / left side Range of motion: Flexion of the lumbar spine <60 degrees Range of motion: Extension of the lumbar spine <20 degrees Gaenslen's Test positive R / L Lucille test: positive right side / left side Thigh Thrust Test positive R / L Sacral Thrust Test positive R/ L Assessment and plan: Chronic neck pain secondary to cervical DDD, spondylosis with facet arthropathy without myelopathy Recommendation of BL TPIs C2-T1. May need a seires of injections for optimal pain relief. Risks, benefits of procedure discussed and pt verbalized understanding. Admits to anticoagulant use or medical history of diabetes. Protocol for discontinuation/ continuation of medications bryan procedure discussed. All questions answered. I have spent less than 30 minutes on patient care today. Dr Pérez was available by phone for the evaluation of this patient. The time was used to review the medical records including relevant urine studies and Prescription history (MAPs), review of the available imaging, evaluation and examination of the patient, coordination of care with the medical staff and if applicable referring physicians, as well as creation of the medical record PQRS Narrative: Smoking Status Former smoker Hx Alcohol Use (MH) No Home Medications: Ambulatory Orders Omeprazole 20 mg PO QAM 06/18/15 Trospium Chloride [Sanctura] 20 mg PO BID 06/18/15 Cholecalciferol [Vitamin D3 (25 Mcg = 1000 Iu)] 2,000 unit PO DAILY tab 10/30/17 HYDROcodone/APAP 7.5-325MG [[place] 7.5-325] 1 tab PO DAILY PRN 05/27/18 Aspirin 81 mg PO DAILY 07/13/22 Atorvastatin [Lipitor] 40 mg PO HS 07/13/22 Calcium Carbonate [Calcium] 600 mg PO DAILY 07/13/22 Cetirizine HCl [Zyrtec] 10 mg PO DAILY 07/13/22 Losartan Potassium [Cozaar] 100 mg PO QAM 07/13/22 Lutein 40 mg PO DAILY 07/13/22 amLODIPine [Norvasc] 5 mg PO HS 07/13/22 carvediloL [Coreg] 6.25 mg PO BID 07/13/22 hydroCHLOROthiazide 12.5 mg PO DAILY 07/13/22 Controlled Substance Measures - Controlled Substance Measures Is patient prescribed a controlled substance at discharge?: No
== END ==
LOC: PNWHC3 12:35
PROVIDERS: ATTEND Specialist
DX: M50.30 Other cervical disc degeneration, unspecified cervical region (principal); M47.812 Spondylosis without myelopathy or radiculopathy, cervical region; G89.29 Other chronic pain; Z87.891 Personal history of nicotine dependence; Z79.82 Long term (current) use of aspirin; Z91.048 Other nonmedicinal substance allergy status
CPT/HCPCS: 99211

== ENCOUNTER 2023-05-01 08:54 | Day surgery (SDC) | payer MEDICARE ==
[2023-05-01 09:17] VITALS: TEMP 97.2
[2023-05-01] MEDS ORDERED: methylPREDNISolone ACETATE 40 MG/ML 1 ML VIAL ONE (09:52)
[2023-05-01] MEDS ORDERED: ROPIVACAINE 5 MG/ML 20 ML AMPULE ONE (09:52)
--- NOTE | 2023-05-01 09:57 | P.PCN ---
Date of Procedure: 05/01/23 Procedure(s) Performed: Procedure= trigger point injections cervical paraspinal muscles bilaterally , 3on the right side from C2 to C6, and 5 on the left side from C2 to C6 Preoperative diagnosis= 1-myofascial pain syndrome cervical paraspinal muscles 2-cervical degenerative disc disease 3-cervical facet arthropathy Postoperative diagnosis=Same as preop Diagnosis . Complication = none Condition= stable Anesthesia= none Indication for the procedure= patient complaining of sever neck pain , examination was positive for multiple trigger point in the cervical paraspinal muscles bilaterally and patient diagnosed with myofascial pain syndrome and is here to have trigger point injections Description of the procedure= procedure risk and benefits discussed with the patient, including but not limited, risk of infection and bleeding, and ALLERGIC reaction to the medication and not complete pain relief and patient agreed with the preceding patient taken to the operating room, placed in sitting position or standard monitors applied to the patient ,neck prepped with chlorhexidine 3 times , then under sterile technique each of the trigger point that was marked in the preop holding area 3 on the right side cervical paraspinal muscles and 5 on the left side cervical paraspinal muscles each one of them injected with the 2 mL of the mixture of ropivacaine 0.5% 16 ML mixed with 40 mg of Depo-Medrol and 2 mL of the mixture injected at each trigger point after negative aspiration, using 25-gauge needle, injection done after negative aspiration under was no paresthesia during the injection patient tolerated the procedure well without any complications and he will follow up in the pain clinic in a few
[2023-05-01 10:59] VITALS: RESP 16
[2023-05-01 11:01] VITALS: BP 143/76; PULSE 75
== END 2023-05-01 10:31 | disposition home or self-care (01) ==
LOC: ORPAIN 08:54
PROVIDERS: ATTEND Specialist
DX: M50.322 Other cervical disc degeneration at C5-C6 level (principal); M79.18 Myalgia, other site; M47.812 Spondylosis without myelopathy or radiculopathy, cervical region
CPT/HCPCS: 20553; J1030; J2795

== ENCOUNTER → 2023-05-24 | Outpatient (CLI) | payer MEDICARE ==
[2023-05-24 14:02] VITALS: BP 130/72; PULSE 62; RESP 18; TEMP 98.2
--- NOTE | 2023-05-24 14:43 | P.PAINPG ---
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 Pt states she experienced 90% pain relief x 3 wks s/p procedure. Pain level is provoked at 8/10 in intensity, constant, localized in the upper cervical spine, tender in character w shooting up towards the lateral sides of head. Pain is provoked by movement, forward flexion. Pain is alleviated with medications, topicals, injections, heat, ice, PT 6 weeks integrated with massage in February 2022, physician guided daily home stretching regimen, repositioning and rest. Oswestry pain score of 20. Interventional pain procedures completed include ROCIO C7-T1, BL Cervical TPIs Patient is currently on [place], Tyl Patient denies any side effects of the medication(s), denies excessive drowsiness or sleepiness, denies suicidal ideation and reports that the current pain medication is helping to control the pain and improve activities of daily living. Patient denies any motor or sensory deficits. Patient denies any fever or night sweats, denies any change in the bowel movements or urination. Physical Examination: -Constitutional: Cooperative. Not in acute distress . - Neurologic: Cranial nerve II to XII intact. No focal neurological deficits. - Psychatric: Alert & oriented x 3. Matching mood & appropriate affect. Judgment and insight intact. - Musculoskeletal: Cervical spine: BL SHALONDA TTP Muscle bulk/ tone/ strength in the bilateral upper extremities normal Vertebral body tenderness to palpation over Spurling test positive Distraction test positive Facet loading test positive TTP Thoracic spine Muscle bulk / tone/ strength in the bilateral paraspinal muscles normal Vertebral body tender to palpation over Facet loading test positive TTP Lumbar spine: Motor bulk/ tone/ strength lower extremities , thigh and legs : 5/5 Deep tendon reflexes : Normal Knee Jerk. Normal Ankle Jerk . Vertebral body tenderness to palpation over Lumbar Facet Loading Test positive Straight Leg Raise: positive at 30 degrees right side/ left side Gaenslen's Test positive Sacral spine : Severe tenderness over the Sacroiliac joint: right side / left side Range of motion: Flexion of the lumbar spine <60 degrees Range of motion: Extension of the lumbar spine <20 degrees Gaenslen's Test positive R / L Lucille test: positive right side / left side Thigh Thrust Test positive R / L Sacral Thrust Test positive R/ L Assessment and plan: Chronic neck pain secondary to cervical DDD, spondylosis with facet arthropathy without myelopathy Recommendation of BL SHALONDA injection #1. May need a series of injections for optimal pain relief. Risks, benefits of procedure discussed and pt verbalized understanding. Admits to anticoagulant use or medical history of diabetes. Protocol for discontinuation/ continuation of medications bryan pr ocedure discussed. All questions answered. I have spent less than 30 minutes on patient care today. Dr Pérez was available by phone for the evaluation of this patient. The time was used to review the medical records including relevant urine studies and Prescription history (MAPs), review of the available imaging, evaluation and examination of the patient, coordination of care with the medical staff and if applicable referring physicians, as well as creation of the medical record PQRS Narrative: Smoking Status Former smoker Hx Alcohol Use (MH) No Home Medications: Ambulatory Orders Omeprazole 20 mg PO QAM 06/18/15 Trospium Chloride [Sanctura] 20 mg PO BID 06/18/15 Cholecalciferol [Vitamin D3 (25 Mcg = 1000 Iu)] 2,000 unit PO DAILY tab 10/30/17 HYDROcodone/APAP 7.5-325MG [[place] 7.5-325] 1 tab PO DAILY PRN 05/27/18 Aspirin 81 mg PO DAILY 07/13/22 Atorvastatin [Lipitor] 40 mg PO HS 07/13/22 Calcium Carbonate [Calcium] 600 mg PO DAILY 07/13/22 Cetirizine HCl [Zyrtec] 10 mg PO DAILY 07/13/22 Losartan Potassium [Cozaar] 100 mg PO QAM 07/13/22 Lutein 40 mg PO DAILY 07/13/22 amLODIPine [Norvasc] 5 mg PO HS 07/13/22 carvediloL [Coreg] 6.25 mg PO BID 07/13/22 hydroCHLOROthiazide 12.5 mg PO DAILY 07/13/22 Controlled Substance Measures - Controlled Substance Measures Is patient prescribed a controlled substance at discharge?: No
== END ==
LOC: PNWHC3 12:50
PROVIDERS: ATTEND Specialist
DX: M50.30 Other cervical disc degeneration, unspecified cervical region (principal); M47.812 Spondylosis without myelopathy or radiculopathy, cervical region; G89.29 Other chronic pain; Z87.891 Personal history of nicotine dependence; Z79.82 Long term (current) use of aspirin; Z91.048 Other nonmedicinal substance allergy status
CPT/HCPCS: 99211

== ENCOUNTER 2023-06-21 08:56 | Day surgery (SDC) | payer MEDICARE ==
[~2023-06-21 08:56] MED LIST changes: -LIDOCAINE 1% (10MG/ML) FOR IV START INTRADERMA PRN
[2023-06-21 09:13] VITALS: TEMP 97.3
[2023-06-21] MEDS ORDERED: methylPREDNISolone ACETATE 40 MG/ML 1 ML VIAL ONE (09:33)
[2023-06-21] MEDS ORDERED: ROPIVACAINE 5 MG/ML 20 ML AMPULE ONE (09:33)
--- NOTE | 2023-06-21 09:38 | P.PCN ---
Date of Procedure: 06/21/23 Procedure(s) Performed: Preoperative diagnoses= 1- Greater occipital neuralgia. 2-cervicogenic headache. 3-cervical spondylosis Postoperative diagnoses= 1-greater occipital neuralgia. 2-cervicogenic headache. 3-cervical spondylosis Procedure= Bilateral Greater occipital nerve block Anesthesia= none . Estimated blood loss=minimal. Procedure indication= the patient had a history of severe chronic neck pain ,and headache, diagnosed with occipital neuralgia exam was positive for severe tenderness over the occipital nerve bilaterally, she will be a good candidate occipital nerve block, patient failed conservative management Procedure description= the patient was seen and identified in the preoperative holding area, risks and benefits and alternative of the procedure and possible complications discussed with the patient, and he agreed with the preceding, patient signed the consent, an IV was started, and vital signs were monitored and were stable throughout the procedure, patient was placed in the sitting position or table and the neck area was prepped and draped with a sterile fas hion, vital signs were closely monitored during the procedure, 25-gauge needle advanced 1 inch lateral to the occipital protuberance on the right side, at the location of the right occipital nerve , then after negative aspiration for heme and CSF and there was no paresthesia during the injection, 6 ml of Robivacaine 0.5% and 20 mg of Depo-Medrol injected after negative aspiration, the needle re moved, and the entire same procedure was repeated for the left Greater occipital nerve. Patient tolerated the procedure well without any complication, The patient returned to supine position after the back was cleaned and a Band- Aid applied, the patient transported to recovery room in stable condition and he was monitored for 30 minutes before he was discharged home and then patient was reexamined before going home and patient was discharged in stable condition and patient will follow up with the pain clinic in a few weeks.
[2023-06-21 09:41] VITALS: BP 134/72; PULSE 67; RESP 16
== END 2023-06-21 09:53 | disposition home or self-care (01) ==
LOC: ORPAIN 08:56
PROVIDERS: ATTEND Specialist
DX: M54.81 Occipital neuralgia (principal); G44.86 Cervicogenic headache; M47.812 Spondylosis without myelopathy or radiculopathy, cervical region; Z88.8 Allergy status to other drugs, medicaments and biological substances; Z79.82 Long term (current) use of aspirin
CPT/HCPCS: 64405; J1030; J2795

== ENCOUNTER → 2023-07-16 | Outpatient (CLI) | payer MEDICARE ==
[2023-07-16 13:15] VITALS: BP 145/80; PULSE 64; RESP 16; TEMP 97.8
--- NOTE | 2023-07-16 14:20 | P.PAINPG ---
PQRS Measure Charge Sheet Comment: A 82 yr old female with a history of severe and chronic neck pain secondary to cervical DDD and spondylosis with facet arthropathy without myelopathy presents today for evaluation s/p BL SHALONDA injection. Pt states she experienced 90% pain relief x 3 wks s/p procedure. Pain level is provoked at 3/10 in intensity, constant, localized in the upper cervical spine, tender in character w shooting up towards the lateral sides of head. Pain is provoked by movement, forward flexion. Pain is alleviated with medications, topicals, injections, heat, ice, PT 6 weeks integrated with massage in February 2022, physician guided daily home stretching regimen, repositioning and rest. Interventional pain procedures completed include ROCIO C7-T1, BL Cervical TPIs, BL SHALONDA injection x1 Patient is currently on [place], Tyl Patient denies any side effects of the medication(s), denies excessive drowsiness or sleepiness, denies suicidal ideation and reports that the current pain medication is helping to control the pain and improve activities of daily living. Patient denies any motor or sensory deficits. Patient denies any fever or night sweats, denies any change in the bowel movements or urination. Physical Examination: -Constitutional: Cooperative. Not in acute distress . - Neurologic: Cranial nerve II to XII intact. No focal neurological deficits. - Psychatric: Alert & oriented x 3. Matching mood & appropriate affect. Judgment and insight intact. - Musculoskeletal: Cervical spine: Mild BL SHALONDA TTP Muscle bulk/ tone/ strength in the bilateral upper extremities normal Vertebral body tenderness to palpation over Spurling test positive Distraction test positive Facet loading test positive TTP Thoracic spine Muscle bulk / tone/ strength in the bilateral paraspinal muscles normal Vertebral body tender to palpation over Facet loading test positive TTP Lumbar spine: Motor bulk/ tone/ strength lower extremities , thigh and legs : 5/5 Deep tendon reflexes : Normal Knee Jerk. Normal Ankle Jerk . Vertebral body tenderness to palpation over Lumbar Facet Loading Test positive Straight Leg Raise: positive at 30 degrees right side/ left side Gaenslen's Test positive Sacral spine : Severe tenderness over the Sacroiliac joint: right side / left side Range of motion: Flexion of the lumbar spine <60 degrees Range of motion: Extension of the lumbar spine <20 degrees Gaenslen's Test positive R / L Lucille test: positive right side / left side Thigh Thrust Test positive R / L Sacral Thrust Test positive R/ L Assessment and plan: Chronic neck pain secondary to cervical DDD, spondylosis with facet arthropathy without myelopathy Will manage residual pain on her own and may return to clinic on an as needed basis. All questions answered. I have spent less than 30 minutes on patient care today. Dr Pérez was available by phone for the evaluation of this patient. The time was used to review the medical records including relevant urine studies and Prescription history (MAPs), review of the available imaging, evaluation and examination of the patient, coordination of care with the medical staff and if applicable referring physicians, as well as creation of the medical record PQRS Narrative: Smoking Status Former smoker Hx Alcohol Use (MH) No Home Medications: Ambulatory Orders Omeprazole 20 mg PO QAM 06/18/15 Trospium Chloride [Sanctura] 20 mg PO BID 06/18/15 HYDROcodone/APAP 7.5-325MG [[place] 7.5-325] 1 tab PO DAILY PRN 05/27/18 Aspirin 81 mg PO QAM 07/13/22 Atorvastatin [Lipitor] 40 mg PO HS 07/13/22 Calcium Carbonate [Calcium] 600 mg PO QAM 07/13/22 Cetirizine HCl [Zyrtec] 10 mg PO QAM 07/13/22 Losartan Potassium [Cozaar] 100 mg PO QAM 07/13/22 Lutein 40 mg PO QAM 07/13/22 amLODIPine [Norvasc] 5 mg PO HS 07/13/22 carvediloL [Coreg] 6.25 mg PO BID 07/13/22 hydroCHLOROthiazide 12.5 mg PO QAM 07/13/22 Cholecalciferol [Vitamin D3 (25 Mcg = 1000 Iu)] 2,000 unit PO QAM 06/14/23 Ibuprofen [Motrin Ib] 200 mg PO Q6H 06/14/23 Controlled Substance Measures - Controlled Substance Measures Is patient prescribed a controlled substance at discharge?: No
== END ==
LOC: PNWHC3 12:34
PROVIDERS: ATTEND Specialist
DX: M50.30 Other cervical disc degeneration, unspecified cervical region (principal); M47.812 Spondylosis without myelopathy or radiculopathy, cervical region; G89.29 Other chronic pain; Z87.891 Personal history of nicotine dependence; Z79.82 Long term (current) use of aspirin; Z91.048 Other nonmedicinal substance allergy status
CPT/HCPCS: 99211

== ENCOUNTER → 2024-02-06 | Outpatient (CLI) | payer MEDICARE ==
--- NOTE | 2024-02-07 08:09 | MM ---
Reason for Exam: Screening (asymptomatic). Last screening mammogram was performed 12 month(s) ago. Patient History: Menarche at age 12. First Full-Term at age 24. Left ovary removed at age 38. Right ovary removed at age 38. Hysterectomy at age 38. Postmenopausal. Estrogen for 27 years from age 38 until age 67. 11/29/2010, Bilateral Reduction. Benign Excisional Biopsy on the left side. Maternal cousin had breast cancer, age 39. Maternal aunt had breast cancer. Maternal aunt had breast cancer. Maternal aunt had breast cancer. Mother had breast cancer, age 65. Risk Values: Purnima 5 year model risk: 3.2%. NCI Lifetime model risk: 3.6%. Prior Study Comparison: 08/13/2017 Right Diagnostic Mammogram, [facility]. 09/13/2018 Bilateral Screening Mammogram, [facility]. 09/22/2019 Bilateral Screening Mammogram, [facility]. 12/03/2020 Bilateral Screening Mammogram, [facility]. 01/31/2022 Bilateral Screening Mammogram, [facility]. 02/02/2023 Bilateral MG 3D screening mammo w/cad, [facility]. Tissue Density: There are scattered areas of fibroglandular density. Findings: Analyzed By CAD. Right breast: There is no suspicious group of microcalcifications or new suspicious mass. Benign-appearing calcifications right breast. Left breast: There is no suspicious group of microcalcifications or new suspicious mass. Benign-appearing calcifications left breast. There is no suspicious group of microcalcifications or new suspicious mass. Overall Assessment: Benign, BI-RAD 2 Management: Screening Mammogram of both breasts in [address] [facility] will attempt to contact patient to return for supplemental views and ultrasound if indicated. Patient should continue monthly self-breast exams. A clinical breast exam by your physician is recommended on an annual basis. This exam should not preclude additional follow-up of suspicious palpable abnormalities. Note on Purnima scores and lifetime risk: 1. A Purnima score greater than 3% is considered moderate risk. If this is the case, consider specialist referral to assess eligibility for a risk reducing agent. 2. If overall lifetime risk for the development of breast cancer is 20% or higher, the patient may qualify for future screening with alternating mammogram and breast MRI. Electronically signed and approved by: Shaheen De La Cruz DO
== END | disposition home or self-care (01) ==
LOC: RADMAMWWP 13:29
PROVIDERS: ATTEND Family Medicine
DX: Z12.31 Encounter for screening mammogram for malignant neoplasm of breast (principal); Z78.0 Asymptomatic menopausal state; Z80.3 Family history of malignant neoplasm of breast
CPT/HCPCS: 77063; 77067

== ENCOUNTER → 2025-02-11 | Outpatient (CLI) | payer MEDICARE ==
--- NOTE | 2025-02-11 14:06 | MM ---
Reason for Exam: Screening (asymptomatic). Last screening mammogram was performed 12 month(s) ago. Patient History: Menarche at age 12. First Full-Term at age 24. Left ovary removed at age 38. Right ovary removed at age 38. Hysterectomy at age 38. Postmenopausal. Estrogen for 27 years from age 38 until age 67. 11/29/2010, Bilateral Reduction. Benign Excisional Biopsy on the left side. Maternal cousin had breast cancer, age 39. Maternal aunt had breast cancer, age 70. Maternal aunt had breast cancer. Maternal aunt had breast cancer. Mother had breast cancer, age 65. Risk Values: Purnima 5 year model risk: 3.0%. NCI Lifetime model risk: 3.0%. Prior Study Comparison: 01/31/2022 Bilateral Screening Mammogram, [facility]. 02/02/2023 Bilateral MG 3D screening mammo w/cad, [facility]. 02/06/2024 Bilateral MG 3D screening mammo w/cad, [facility]. Tissue Density: There are scattered areas of fibroglandular density. Findings: Analyzed By CAD. There is no suspicious group of microcalcifications or new suspicious mass in either breast. And benign-appearing calcifications. Stable chronic nodularity. Breast. Overall Assessment: Benign, BI-RAD 2 Management: Screening Mammogram of both breasts in 1 year. . Patient should continue monthly self-breast exams. A clinical breast exam by your physician is recommended on an annual basis. This exam should not preclude additional follow-up of suspicious palpable abnormalities. Note on Purnima scores and lifetime risk: 1. A Purnima score greater than 3% is considered moderate risk. If this is the case, consider specialist referral to assess eligibility for a risk reducing agent. 2. If overall lifetime risk for the development of breast cancer is 20% or higher, the patient may qualify for future screening with alternating mammogram and breast MRI. [facility], , 02/11/2025 2:03 PM. Electronically signed and approved by: Lei Melvin M.D. Radiologis
--- NOTE | 2025-02-11 14:52 | BD ---
EXAMINATION TYPE: Axial Bone Density DATE OF EXAM: 02/11/2025 CLINICAL HISTORY: 84 years old Female. ICD-10 CODE: M85.80 DISORDER OF BONE , Additional History: Height: 61.7 in Weight: 147 lbs FRAX RISK QUESTIONS: Secondary Osteoporosis: 3. Menopause before 44: total hysterectomy age 38 RISK FACTORS HISTORY OF: Surgery to Spine: l spine fusion 2014 EXAM MEASUREMENTS: Bone mineral densitometry was performed using the Droplr System. Bone mineral density about the R hip (g/cm2): 0.776 Bone mineral density about the L hip (g/cm2): 0.836 T Score values are as follows: -----R Neck: -1.4 -----L Neck: -0.9 -----R Total: -1.8 -----L Total: -1.4 Z Score values are as follows: -----R Neck: 0.9 -----L Neck: 1.5 -----R Total: 0.4 -----L Total: 0.9 Bone mineral density has: Decreased -7.8% since study of: 08/06/2017 Bone mineral density about the L Wrist (g/cm2): 0.473 T Score values are as follows: -----Dist. R+U: -2.5 -----Prox. R+U: -2.8 -----Radius total: -3.3 Z Score values are as follows: -----Dist. R+U: 0.8 -----Prox. R+U: 0.4 -----Radius total: -0.1 Bone mineral density baseline FRAX%s: The graph provided illustrates a 19.1% chance for a major osteoporotic fx and a 4.5% chance f or the hips probability for fx in 10 years time. IMPRESSION: Osteoporosis (T Score less than -2.5). There is increased fracture risk and therapy is usually indicated based on age. Re-Screen 1-2 years. NOTE: T-SCORE=SD OF THE YOUNG ADULT MEAN. [facility], , 02/11/2025 2:50 PM
== END | disposition home or self-care (01) ==
LOC: RADMAMWWP 13:09
PROVIDERS: ATTEND Family Medicine
DX: Z12.31 Encounter for screening mammogram for malignant neoplasm of breast (principal); R92.323 Mammographic fibroglandular density, bilateral breasts; M81.0 Age-related osteoporosis without current pathological fracture; M85.89 Other specified disorders of bone density and structure, multiple sites; Z78.0 Asymptomatic menopausal state; Z80.3 Family history of malignant neoplasm of breast
CPT/HCPCS: 77063; 77067; 77080